=== PATIENT | female | born 1985 | race Caucasian/White ===

== ENCOUNTER 2017-06-26 18:35 | Emergency (ER) | payer MEDICAID ==
[2017-06-26] MEDS ORDERED: ONDANSETRON 4 MG/2 ML VIAL IVP ONE (18:54)
[2017-06-26] MEDS ORDERED: NS 1,000 ML IV ONE (18:54)
--- NOTE | 2017-06-26 18:58 | EDPHY ---
H & P Stated Complaint: RLQ pain - Personal History LMP (Females 10-55): 22-28 Days Ago Current Tetanus/Diphtheria Vaccine: Yes Current Tetanus Diphtheria and Acellular Pertussis (TDAP): Yes - Medical/Surgical History Hx Asthma: No Hx Chronic Respiratory Disease: No Hx Diabetes: No Hx Cardiac Disease: No Hx Renal Disease: No Hx Cirrhosis: No Hx Alcoholism: No Hx HIV/AIDS: No Hx Splenectomy or Spleen Trauma: No Other PMH: Bilateral tubal ligation - Social History Smoking Status: Never smoked Time Seen by Provider: 06/26/17 18:47 HPI/ROS: CHIEF COMPLAINT: Right lower quadrant pain HISTORY OF PRESENT ILLNESS: 32-year-old female presents with right lower quadrant pain. Sudden onset of severe right lower quadrant pain yesterday. The pain has waxed and waned since then and continues to be moderate. Associated with lack of appetite and vomiting today. No fever or chills. No prior similar symptoms. No history of ovarian cysts or kidney stones. REVIEW OF SYSTEMS: complete 10 point ROS negative except at noted in the HPI (Deysi Phan) - Physical Exam Exam: General Appearance: Alert, pleasant, appears in pain, pale Eyes: Pupils equal and round, no conjunctival injection ENT, Mouth: Mucous membranes moist Neck: Normal inspection Respiratory: Lungs are clear to auscultation Cardiovascular: Regular rate and rhythm Gastrointestinal: Abdomen is soft, right lower quadrant tenderness Neurological: A&O, nonfocal, normal gait Skin: Warm and dry Extremities: Normal inspection Psychiatric: Mood and affect normal (Deysi Phan) Constitutional: Initial Vital Signs Temperature (C) 36.8 C 06/26/17 18:39 Heart Rate 63 06/26/17 18:39 Respiratory Rate 16 06/26/17 18:39 Blood Pressure 113/70 06/26/17 18:39 O2 Sat (%) 97 06/26/17 18:39 O2 Delivery Mode Room Air Allergies/Adverse Reactions: codeine Allergy (Verified 06/26/17 18:39) Home Medications: Medication Instructions Recorded NK [No Known Home Meds] 06/26/17 Medical Decision Making - Diagnostics Imaging Results: Imaging Impressions Abdomen Ultrasound 06/26/17 18:55 Impression: Nonvisualization of the appendix with no secondary evidence of appendicitis. Findings discussed with DEYSI PHAN 06/26/2017 at 20:45. Pelvic/Renal Ultrasound 06/26/17 18:55 Impression: Mildly heterogeneous thickened endometrium, which could related to polyp, hyperplasia, or less likely malignancy. Findings discussed with DEYSI PHAN 06/26/2017 at 20:45. Abdomen/Pelvis CT 06/26/17 20:47 Impression: 1. Moderate stool in the colon. 2. Limited visualization of endometrial thickening seen better on ultrasound the same day. 3. Additional findings, as above. Findings discussed with Deysi Phan M.D., on June 26, 2017 at 2107. Attention: This CT examination is specifically designed to evaluate patients who are clinically suspected of having acute obstructive uropathy. This examination does not use radiographic contrast, and as such, provides only a limited evaluation of the abdomen, pelvis, and retroperitoneum. If there is further clinical suspicion for pathological conditions other than obstructive uropathy, a complete CT evaluation of the abdomen and pelvis utilizing intravenous and oral contrast should be considered. ED Course/Re-evaluation: This patient presents with severe right lower quadrant pain. IV normal saline 1 L and Zofran 4 mg IV given. Morphine 4mg IV given for pain control. Ultrasound of the pelvis and appendix ordered. 2049: Pelvic ultrasound is unremarkable. The appendix not visualized on ultrasound. Results discussed with the patient. She continues to have right lower quadrant pain. Labs reviewed she has leukocytosis and hematuria. Will order a noncontrast CT scan of the abdomen pelvis to evaluate for ureteral calculus and possible appendicitis. CT scan reveals a normal appendix and no evidence of ureteral calculus. Unclear etiology of pain. Results discussed with the patient. Toradol 15 mg IV given. If she feels better after IV Toradol, will plan to discharge her home. Recheck in 12-24 hours if pain persists. (Deysi Phan) Patient's pain is resolved. He feels much better. She does comfortable being discharged. Please refer to the Dr. Phan's note. (Olivia Aranda) Differential Diagnosis: Differential diagnosis includes though it is not limited to ectopic , ovarian cyst, ovarian torsion, PID, UTI, appendicitis. (Deysi Phan) - Data Points Laboratory Results: Laboratory Results 06/26/17 18:54 06/26/17 18:54 06/26/17 06/26/17 06/26/17 18:54 18:54 18:54 WBC 11.49 10^3/uL H 10^3/uL (3.80-9.50) RBC 5.25 10^6/uL 10^6/uL (4.18-5.33) Hgb 12.4 g/dL L g/dL (12.6-16.3) Hct 39.2 % % (38.0-47.0) MCV 74.7 fL L fL (81.5-99.8) MCH 23.6 pg L pg (27.9-34.1) MCHC 31.6 g/dL L g/dL (32.4-36.7) RDW 15.2 % % (11.5-15.2) Plt Count 341 10^3/uL 10^3/uL (150-400) MPV 10.5 fL fL (8.7-11.7) Neut % (Auto) 70.3 % % (39.3-74.2) Lymph % (Auto) 19.8 % % (15.0-45.0) [place] % (Auto) 7.8 % % (4.5-13.0) Eos % (Auto) 1.7 % % (0.6-7.6) Baso % (Auto) 0.2 % L % (0.3-1.7) Nucleat RBC Rel Count 0.0 % % (0.0-0.2) Absolute Neuts (auto) 8.09 10^3/uL H 10^3/uL (1.70-6.50) Absolute Lymphs (auto) 2.27 10^3/uL 10^3/uL (1.00-3.00) Absolute Monos (auto) 0.90 10^3/uL H 10^3/uL (0.30-0.80) Absolute Eos (auto) 0.19 10^3/uL 10^3/uL (0.03-0.40) Absolute Basos (auto) 0.02 10^3/uL 10^3/uL (0.02-0.10) Absolute Nucleated RBC 0.00 10^3/uL 10^3/uL (0-0.01) Immature Gran % 0.2 % % (0.0-1.1) Immature Gran # 0.02 10^3/uL 10^3/uL (0.00-0.10) Sodium 140 mEq/L mEq/L (135-145) Potassium 3.8 mEq/L mEq/L (3.5-5.2) Chloride 104 mEq/L mEq/L (97-110) Carbon Dioxide 24 mEq/l mEq/l (22-31) Anion Gap 12 mEq/L mEq/L (8-16) BUN 17 mg/dL mg/dL (7-23) Creatinine 0.8 mg/dL mg/dL (0.6-1.0) Estimated GFR > 60 Glucose 82 mg/dL mg/dL (70-100) Calcium 9.3 mg/dL mg/dL (8.5-10.4) Beta HCG, Qual NEGATIVE Urine Color Urine Appearance Urine pH Ur Specific [place] Urine Protein Urine Ketones Urine Blood Urine Nitrate Urine Bilirubin Urine Urobilinogen Ur Leukocyte Esterase Urine RBC Urine WBC Ur Epithelial Cells Urine Mucus Urine Glucose 06/26/17 18:45 WBC RBC Hgb Hct MCV MCH MCHC RDW Plt Count MPV Neut % (Auto) Lymph % (Auto) [place] % (Auto) Eos % (Auto) Baso % (Auto) Nucleat RBC Rel Count Absolute Neuts (auto) Absolute Lymphs (auto) Absolute Monos (auto) Absolute Eos (auto) Absolute Basos (auto) Absolute Nucleated RBC Immature Gran % Immature Gran # Sodium Potassium Chloride Carbon Dioxide Anion Gap BUN Creatinine Estimated GFR Glucose Calcium Beta HCG, Qual Urine Color YELLOW Urine Appearance HAZY Urine pH 6.0 (5.0-7.5) Ur Specific [place] 1.027 (1.002-1.030) Urine Protein NEGATIVE (NEGATIVE) Urine Ketones NEGATIVE (NEGATIVE) Urine Blood 1+ H (NEGATIVE) Urine Nitrate NEGATIVE (NEGATIVE) Urine Bilirubin NEGATIVE (NEGATIVE) Urine Urobilinogen NEGATIVE EU EU (0.2-1.0) Ur Leukocyte Esterase NEGATIVE (NEGATIVE) Urine RBC 3-5 /hpf H /hpf (0-3) Urine WBC 1-3 /hpf /hpf (0-3) Ur Epithelial Cells TRACE /lpf /lpf (NONE-1+) Urine Mucus 2+ /lpf H /lpf (NONE-1+) Urine Glucose NEGATIVE (NEGATIVE) Medications Given: Discontinued Medications Sodium Chloride (Ns) 1,000 mls @ 0 mls/hr IV ONCE ONE; Wide Open PRN Reason: Protocol Stop: 06/26/17 18:55 Last Admin: 06/26/17 19:05 Dose: 1,000 mls Ketorolac Tromethamine (Toradol) 15 mg IVP EDNOW ONE Stop: 06/26/17 21:13 Last Admin: 06/26/17 21:27 Dose: 15 mg Morphine Sulfate (Morphine) 4 mg IVP EDNOW ONE Stop: 06/26/17 20:46 Last Admin: 06/26/17 21:03 Dose: Not Given Morphine Sulfate (Morphine) 4 mg IVP EDNOW ONE Stop: 06/26/17 21:01 Last Admin: 06/26/17 21:02 Dose: 4 mg Ondansetron HCl (Zofran) 4 mg IVP EDNOW ONE Stop: 06/26/17 18:55 Last Admin: 06/26/17 19:05 Dose: 4 mg Ondansetron HCl (Zofran Odt 4 Mg Prepack#2) 1 btl TAKEHOME EDNOW ONE Stop: 06/26/17 21:21 Last Admin: 06/26/17 21:27 Dose: 1 btl Departure - Departure Disposition: Home, Routine, Self-Care Clinical Impression: Abdominal pain Qualifiers: Abdominal location: right lower quadrant Qualified Code(s): R10.31 - Right lower quadrant pain Condition: Good Instructions: Ondansetron (By mouth), Acute Abdominal Pain (ED) Additional Instructions: Ibuprofen 600 mg 3 times daily while the pain persists. Zofran 1 tablet under the tongue every 6 hours as needed for nausea. Clear liquids for [address] scan, your uterus appears thicker than usual. 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 Sometimes we are unable to diagnose an obvious cause of abdominal pain in the Emergency Department. Based upon our evaluation today, we see no obvious explanation for your pain. Because more serious conditions can be difficult to diagnose early in the course of their presentation, we ask that you return to the Emergency Department in 12-24 hours for a recheck if you are still having pain. This is necessary to exclude the development of a more serious condition such as appendicitis or other intra-abdominal emergency. In the event your pain markedly increases before that time or you develop intractable vomiting or fever return to the Emergency Department immediately. Referrals: Giselle Pride MD [[facility] Primary Care Provider] - 1 day, if not improved Stand Alone Forms: Work Excuse
[2017-06-26 19:06] LABS: PLATELET COUNT 341 10^3/uL (150-400)
[2017-06-26] MEDS ORDERED: KETOROLAC 15 MG/1 ML SDV IVP ONE (21:12)
[2017-06-26] MEDS ORDERED: ONDANSETRON 4MG PREPACK#2 BTL TAKEHOME ONE (21:20)
[2017-06-26 22:18] VITALS: BP 124/82
== END 2017-06-26 22:28 | disposition home or self-care (01) ==
DX: R10.31 Right lower quadrant pain (principal); E86.9 Volume depletion, unspecified; Z98.51 Tubal ligation status
CPT/HCPCS: 96374; J1885; J2270; J2405

== ENCOUNTER 2017-08-18 21:40 | Emergency (ER) | payer MEDICAID ==
--- NOTE | 2017-08-18 21:52 | CPEKG ---
Heart Rate: 68 RR Interval: 882 P-R Interval: 140 QRSD Interval: 90 QT Interval: 388 QTC Interval: 413 P [place]: 43 QRS [place]: 35 T Wave [place]: 22 EKG Severity - NORMAL ECG - EKG Impression: SINUS RHYTHM Electronically Signed By: Epi Desai 19-Aug-2017 07:05:23
--- NOTE | 2017-08-18 21:53 | EDPHY ---
H & P Stated Complaint: CP/R ARM TINGLY Time Seen by Provider: 08/18/17 22:01 HPI/ROS: HPI CHIEF COMPLAINT: Right-sided chest pain HISTORY OF PRESENT ILLNESS: 32-year-old female, she is otherwise healthy, presents to the emergency room with right-sided chest discomfort she describes as sharp stabbing. It is worse when you press on her right chest. Additionally she reports numbness and tingling right arm and right hand. Additionally reports anxiety. States she feels very anxious. This started about 2 hr ago. She is on the phone having a conversation. She denies any chest pressure or dull ache, denies left-sided chest discomfort, denies pleuritic pain. Main complaint right-sided sharp chest pain. Worse when you press on her chest. No trauma. Denies productive cough. Denies history of cardiovascular disease, denies history of DVT or PE. Past Medical History: Denies significant medical history Past Surgical History: Denies significant surgical history except for tubal ligation Social History: Denies daily use of drugs alcohol tobacco Family History: Denies cardiovascular disease in her family. ROS REVIEW OF SYSTEMS: A comprehensive 10 point review of systems is otherwise negative aside from elements mentioned in the history of present illness. Exam Constitutional appears anxious otherwise nontoxic, triage nursing summary reviewed, vital signs reviewed, awake/alert. Eyes normal conjunctivae and sclera, EOMI, PERRLA. HENT normal inspection, atraumatic, moist mucus membranes, no epistaxis, neck supple/ no meningismus, no raccoon eyes. Respiratory clear to auscultation bilaterally, normal breath sounds, no respiratory distress, no wheezing. Cardiovascular chest wall: Mild tender palpation right chest wall reproducible on exam, rate normal, regular rhythm, no murmur, no edema, distal pulses normal. Gastrointestinal soft, non-tender, no rebound, no guarding, normal bowel sounds, no distension, no pulsatile mass. Genitourinary no CVA tenderness. Musculoskeletal no midline vertebral tenderness, full range of motion, no calf swelling, no tenderness of extremities, no meningismus, good pulses, neurovascularly intact. Skin pink, warm, & dry, no rash, skin atraumatic. Neurologic awake, alert and oriented x 3, AAOx3, moves all 4 extremities equally, motor intact, sensory intact, CN II-XII intact, normal cerebellar, normal vision, normal speech. Psychiatric normal mood/affect. Heme/Lymph/Immune no lymphadenopathy. 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 Re-evaluation: EKG interpretation by me on record in [employer] system. Impression time of EKG 2150, sinus rhythm rate of [address] elevation there is no ST depression no significant T-wave abnormalities no signs of cardiac arrhythmia. Unremarkable nonischemic EKG. EKG was performed due to right-sided chest discomfort. Given this patient's positive D-dimer in the setting of right-sided pleuritic pain or sharp stabbing pain, will proceed with CT angiogram chest to make sure there is no pulmonary embolism. CT angiogram of the chest for PE shows no evidence of pulmonary embolism. Called to me by Dr. Delgado 1230: Patient re-evaluated this time she is resting comfortably no acute distress. Her EKG is nonischemic. Additionally troponin negative. D-dimer is positive but has a negative CT angiogram. Patient resting comfortably after Toradol and Ativan. She does have reproducible right-sided musculoskeletal chest wall pain. EKG interpretation by me on record in [employer] system. Impression this is a repeat EKG time 1:07 a.m., sinus rhythm rate of 66 no significant signs of acute ischemia on the EKG. Unremarkable EKG and unchanged from previous EKG. 0210: Re-evaluation time resting comfortably no acute distress denies chest pain. Patient repeat troponin repeat EKG unremarkable. CT angiogram of the chest shows no evidence of PE. Plan for patient discharge home. Understands return emergency room she develops any worsening chest pain shortness of breath fever vomiting questions or concerns. Source: Patient - Personal History LMP (Females 10-55): 8-14 Days Ago Current Tetanus Diphtheria and Acellular Pertussis (TDAP): Yes - Medical/Surgical History Hx Asthma: No Hx Chronic Respiratory Disease: No Hx Diabetes: No Hx Cardiac Disease: No Hx Renal Disease: No Hx Cirrhosis: No Hx Alcoholism: No Hx HIV/AIDS: No Hx Splenectomy or Spleen Trauma: No Other PMH: Bilateral tubal ligation, HTN - Social History Smoking Status: Never smoked Constitutional: Initial Vital Signs Temperature (C) 36.8 C 08/18/17 21:42 Heart Rate 73 08/18/17 21:42 Respiratory Rate 16 08/18/17 21:42 Blood Pressure 124/94 H 08/18/17 21:42 O2 Sat (%) 96 08/18/17 21:42 O2 Delivery Mode Room Air Allergies/Adverse Reactions: codeine Allergy (Verified 06/26/17 18:39) Home Medications: Medication Instructions Recorded Ibuprofen [Motrin (*)] 800 mg PO Q6-8PRN #30 tab 08/19/17 Medical Decision Making - Diagnostics Imaging Results: Imaging Impressions Chest X-Ray 08/18/17 22:00 Impression: No significant radiographic abnormality. Specifically, a source for chest pain is not identified. Chest/Thorax CTA 08/18/17 22:38 Impression: 1. No evidence of pulmonary embolic disease. 2 see above report for additional findings. Results called and discussed with Epi Desai MD on 08/18/2017 at 23:25. - Data Points Laboratory Results: Laboratory Results 08/18/17 21:55 08/18/17 21:55 08/19/17 08/18/17 08/18/17 01:07 22:17 21:55 WBC RBC Hgb Hct MCV MCH MCHC RDW Plt Count MPV Neut % (Auto) Lymph % (Auto) [place] % (Auto) Eos % (Auto) Baso % (Auto) Nucleat RBC Rel Count Absolute Neuts (auto) Absolute Lymphs (auto) Absolute Monos (auto) Absolute Eos (auto) Absolute Basos (auto) Absolute Nucleated RBC Immature Gran % Immature Gran # PT INR APTT D-Dimer Sodium Potassium Chloride Carbon Dioxide Anion Gap BUN Creatinine Estimated GFR Glucose Calcium Magnesium Total Bilirubin Conjugated Bilirubin Unconjugated Bilirubin AST ALT Alkaline Phosphatase POC Troponin I 0.00 ng/mL ng/mL 0.00 ng/mL ng/mL (0.00-0.08) (0.00-0.08) NT-Pro-B Natriuret Pep Total Protein Albumin Lipase Beta HCG, Qual NEGATIVE 07/02/18 07/02/18 07/02/18 21:55 21:55 21:55 WBC 10.07 10^3/uL H 10^3/uL (3.80-9.50) RBC 5.35 10^6/uL H 10^6/uL (4.18-5.33) Hgb 12.6 g/dL g/dL (12.6-16.3) Hct 39.8 % % (38.0-47.0) MCV 74.4 fL L fL (81.5-99.8) MCH 23.6 pg L pg (27.9-34.1) MCHC 31.7 g/dL L g/dL (32.4-36.7) RDW 15.9 % H % (11.5-15.2) Plt Count 337 10^3/uL 10^3/uL (150-400) MPV 10.4 fL fL (8.7-11.7) Neut % (Auto) 70.7 % % (39.3-74.2) Lymph % (Auto) 18.7 % % (15.0-45.0) [place] % (Auto) 8.3 % % (4.5-13.0) Eos % (Auto) 1.7 % % (0.6-7.6) Baso % (Auto) 0.3 % % (0.3-1.7) Nucleat RBC Rel Count 0.0 % % (0.0-0.2) Absolute Neuts (auto) 7.12 10^3/uL H 10^3/uL (1.70-6.50) Absolute Lymphs (auto) 1.88 10^3/uL 10^3/uL (1.00-3.00) Absolute Monos (auto) 0.84 10^3/uL H 10^3/uL (0.30-0.80) Absolute Eos (auto) 0.17 10^3/uL 10^3/uL (0.03-0.40) Absolute Basos (auto) 0.03 10^3/uL 10^3/uL (0.02-0.10) Absolute Nucleated RBC 0.00 10^3/uL 10^3/uL (0-0.01) Immature Gran % 0.3 % % (0.0-1.1) Immature Gran # 0.03 10^3/uL 10^3/uL (0.00-0.10) PT 14.3 SEC SEC (12.0-15.0) INR 1.09 (0.83-1.16) APTT 29.1 SEC SEC (23.0-38.0) D-Dimer 0.89 ug/mLFEU H ug/mLFEU (0.00-0.50) Sodium 138 mEq/L mEq/L (135-145) Potassium 3.5 mEq/L mEq/L (3.3-5.0) Chloride 106 mEq/L mEq/L (97-110) Carbon Dioxide 24 mEq/l mEq/l (22-31) Anion Gap 8 mEq/L mEq/L (8-16) BUN 11 mg/dL mg/dL (7-23) Creatinine 0.7 mg/dL mg/dL (0.6-1.0) Estimated GFR > 60 Glucose 93 mg/dL mg/dL (70-100) Calcium 9.7 mg/dL mg/dL (8.5-10.4) Magnesium 1.7 mg/dL mg/dL (1.6-2.3) Total Bilirubin 1.3 mg/dL mg/dL (0.1-1.4) Conjugated Bilirubin 0.4 mg/dL mg/dL (0.0-0.5) Unconjugated Bilirubin 0.9 mg/dL mg/dL (0.0-1.1) AST 22 IU/L IU/L (14-46) ALT 30 IU/L IU/L (9-52) Alkaline Phosphatase 117 IU/L IU/L (38-126) POC Troponin I NT-Pro-B Natriuret Pep 22 pg/mL pg/mL (0-125) Total Protein 8.6 g/dL H g/dL (6.3-8.2) Albumin 4.6 g/dL g/dL (3.5-5.0) Lipase 55 IU/L IU/L (23-300) Beta HCG, Qual Medications Given: Discontinued Medications Sodium Chloride (Ns) 1,000 mls @ 0 mls/hr IV EDNOW ONE; Wide Open PRN Reason: Protocol Stop: 08/18/17 22:01 Last Admin: 08/18/17 22:10 Dose: 1,000 mls Ketorolac Tromethamine (Toradol) 15 mg IVP EDNOW ONE Stop: 08/18/17 22:01 Last Admin: 08/18/17 22:11 Dose: 15 mg Lorazepam (Ativan Injection) 0.5 mg IVP EDNOW ONE Stop: 08/18/17 22:01 Last Admin: 08/18/17 22:11 Dose: 0.5 mg Point of Care Test Results: Chemistry 08/19/17 08/18/17 01:07 22:17 POC Troponin I 0.00 ng/mL ng/mL 0.00 ng/mL ng/mL (0.00-0.08) (0.00-0.08) Departure - Departure Disposition: Home, Routine, Self-Care Clinical Impression: Chest wall pain Condition: Good Instructions: Chest Wall Pain (ED) Additional Instructions: 1. Return emergency room if you have worsening pain questions or concerns. 2. Anti-inflammatory pain medicine as prescribed 3. Follow up with your primary care doctor. Referrals: NONE *PRIMARY CARE P,. [Primary Care Provider] - As per Instructions [facility],. [Clinic] - As per Instructions Prescriptions: Ibuprofen [Motrin (*)] 800 mg PO Q6-8PRN #30 tab
[2017-08-18] MEDS ORDERED: NS 1,000 ML IV ONE (22:00)
[2017-08-18] MEDS ORDERED: KETOROLAC 15 MG/1 ML SDV IVP ONE (22:00)
[2017-08-18] MEDS ORDERED: LORazepam 2 MG/ML INJ IVP ONE (22:00)
[2017-08-18 22:23] LABS: PLATELET COUNT 337 10^3/uL (150-400)
[2017-08-18 22:28] LABS: INR 1.09 (0.83-1.16); PROTIME(PATIENT) 14.3 SEC (12.0-15.0)
[2017-08-18] MEDS ORDERED: IOPAMIDOL (ISOVUE 370) 100 ML BTL IV ONE (22:41)
--- NOTE | 2017-08-19 01:12 | CPEKG ---
Heart Rate: 66 RR Interval: 909 P-R Interval: 148 QRSD Interval: 88 QT Interval: 392 QTC Interval: 411 P [place]: 50 QRS [place]: 25 T Wave [place]: 16 EKG Severity - NORMAL ECG - EKG Impression: SINUS RHYTHM Electronically Signed By: Epi Desai 19-Aug-2017 07:05:23
[2017-08-19 02:20] VITALS: BP 119/77
== END 2017-08-19 02:20 | disposition home or self-care (01) ==
DX: R07.89 Other chest pain (principal); I10 Essential (primary) hypertension; E86.9 Volume depletion, unspecified
CPT/HCPCS: 84484-PO; 96374; J1885; J2060; Q9967

== ENCOUNTER 2017-08-19 12:47 | Emergency (ER) | payer MEDICAID ==
[2017-08-19 12:57] VITALS: BP 122/72
--- NOTE | 2017-08-19 13:01 | EDPHY ---
H & P Stated Complaint: pt seen last night d/c @0220- panic attack, c/o diziness/ hand cramps Time Seen by Provider: 08/19/17 12:58 - Personal History Current Tetanus Diphtheria and Acellular Pertussis (TDAP): Unsure - Medical/Surgical History Hx Asthma: No Hx Chronic Respiratory Disease: No Hx Diabetes: No Hx Cardiac Disease: No Hx Renal Disease: No Hx Cirrhosis: No Hx Alcoholism: No Hx HIV/AIDS: No Hx Splenectomy or Spleen Trauma: No Other PMH: Bilateral tubal ligation, HTN - Social History Smoking Status: Never smoked Constitutional: Initial Vital Signs Temperature (C) 36.4 C 08/19/17 12:52 Heart Rate 72 08/19/17 12:52 Respiratory Rate 16 08/19/17 12:52 Blood Pressure 122/72 H 08/19/17 12:52 O2 Sat (%) 96 08/19/17 12:52 O2 Delivery Mode Room Air Allergies/Adverse Reactions: codeine Allergy (Verified 06/26/17 18:39) Home Medications: Medication Instructions Recorded Ibuprofen [Motrin (*)] 800 mg PO Q6-8PRN #30 tab 08/19/17 Medical Decision Making ED Course/Re-evaluation: CHIEF COMPLAINT: Carpopedal spasms, dizzy HISTORY OF PRESENT ILLNESS: The patient is a 32 y/o female arriving via EMS complaining of carpopedal spasms and dizziness. She was discharged from this emergency department at 02:20 , 11 hours ago, for similar symptoms. During this visit she had a normal workup and was prescribed Ativan. She did not fill this prescription yet. Today she was at her daughter's school and developed the symptoms again. Denies eating or sleeping much. Denies chest pain, shortness of breath, abdominal pain, urinary or bowel complaints, fever. REVIEW OF SYSTEMS: A 10 point review of systems was performed and is negative with the exception of the elements mentioned in the history of present illness. PHYSICAL EXAM: HR, BP, O2 Sat, RR. Temp noted General Appearance: Alert, well hydrated, appropriate, and non-toxic appearing. Head: Atraumatic without scalp tenderness or obvious injury Eyes: Pupils equal, round, reactive to light and accommodation, EOMI, no trauma , no injection. Ears: Clear bilaterally, no perforation, normal landmarks Nose: Atraumatic, no rhinorrhea, clear. Throat: There is no erythema or exudates, no lesions, normal tonsils, mucus membranes moist. Neck: Supple, 2+ carotid upstroke, nontender, no lymphadenopathy. Respiratory: No retractions, no distress, no wheezes, and no accessory muscle use. Lungs are clear to auscultation bilaterally. Cardiovascular: Regular rate and rhythm, no murmurs, rubs, or gallops. Bilateral carotid, radial, dorsalis pedis, and posterior tibial pulses intact. Good capillary refill all extremities. Gastrointestinal: Abdomen is soft, nontender, non-distended, no masses, no rebound, no guarding, no peritoneal signs. Musculoskeletal: Normal active ROM of all extremities, atraumatic. Neurological: Alert, appropriate, and interactive. The patient has normal DTRs and non-focal cranial nerves, motor, sensory, and cerebellar exam. Skin: No rashes, good turgor, no nodules on palpation. Past medical history: Anxiety Past surgical history: Denies Family history: Denies Social history: Lives in [place], single, not employed DIFFERENTIAL DIAGNOSIS: The differential diagnosis for the patient's dizziness included but was not limited to anxiety, peripheral and central causes of vertigo, orthostatic causes including dehydration, cardiogenic and neurogenic causes, and blood loss. MEDICAL DECISION MAKING: The patient is a 32 y/o female arriving via EMS presenting with carpopedal spasms and dizziness after being seen in this emergency department last night for anxiety. Her physical exam is normal. She has not filled the prescription for Ativan yet. Imaging and laboratory studies are not indicated at this time. 1300: Reassessed patient and discussed filling her Ativan prescription. She is not symptomatic and safe to return home. Return precautions provided; patient is comfortable with this plan. Departure - Departure Disposition: Home, Routine, Self-Care Clinical Impression: Panic attack, Numbness, Anxiety Condition: Good Instructions: Paresthesia (ED), Anxiety (ED), Panic Attack (ED) Additional Instructions: 1. Fill the prescriptions that you were prescribed last night. 2. Follow-up with your primary doctor within 72 hours. 3. Return to the Emergency Department for fever, chest pain, shortness of breath , increasing pain or other worsening of condition. Referrals: [facility],. [Clinic] - As per Instructions Report Scribed for: Jose Angel Quinteros Report Scribed by: Lia Nix Date of Report: 08/19/17 Time of Report: 13:03
== END 2017-08-19 13:17 | disposition home or self-care (01) ==
LOC: EDUNIT#
DX: F41.0 Panic disorder [episodic paroxysmal anxiety] (principal); R20.0 Anesthesia of skin; I10 Essential (primary) hypertension

== ENCOUNTER 2018-01-03 19:32 | Emergency (ER) | payer MEDICAID ==
[2018-01-03] MEDS ORDERED: fentaNYL 100 MCG/2 ML INJ IVP ONE (19:52)
[2018-01-03 20:00] LABS: PLATELET COUNT 354 10^3/uL (150-400)
[2018-01-03] MEDS ORDERED: IOPAMIDOL (ISOVUE 370) 100 ML BTL IV ONE ×2 (20:28→20:42)
[2018-01-03] MEDS ORDERED: LORazepam 2 MG/ML INJ IVP ONE (21:03)
[2018-01-03] MEDS ORDERED: LORazepam 2 MG/ML INJ ONE (21:03)
[2018-01-03] MEDS ORDERED: OXYCODONE/APAP 5/325MG PREPACK#4 BTL TAKEHOME ONE (22:10)
--- NOTE | 2018-01-03 22:10 | EDPHY ---
H & P Stated Complaint: chest pain - Personal History LMP (Females 10-55): Now Current Tetanus Diphtheria and Acellular Pertussis (TDAP): Unsure - Medical/Surgical History Hx Asthma: No Hx Chronic Respiratory Disease: No Hx Diabetes: No Hx Cardiac Disease: No Hx Renal Disease: No Hx Cirrhosis: No Hx Alcoholism: No Hx HIV/AIDS: No Hx Splenectomy or Spleen Trauma: No Other PMH: Bilateral tubal ligation, HTN - Social History Smoking Status: Never smoked Time Seen by Provider: 01/03/18 19:42 HPI/ROS: Chief complaint: Chest pain History of present illness: This is a 32-year-old female who presents to the emergency department for evaluation of chest pain. She reports the onset of symptoms over the last few days. She describes a sharp pain in the left upper aspect of chest. She does have associated shortness breath. Stress reports she has noticed a lump in her left breast. She has a mammogram scheduled for next week to evaluate this. She denies specific precipitating factors. She denies alleviating factors. She denies other associated signs or symptoms including no fevers or cold symptoms, no trauma. Review of systems: A 10 point review of systems was obtained and other than described above was negative (Ricardo Li) - Physical Exam Exam: General Appearance: Alert, appears uncomfortable. Eyes: Pupils equal and round no pallor or injection. ENT, Mouth: Mucous membranes moist. Respiratory: There are no retractions, lungs are clear to auscultation. Cardiovascular: Regular rate and rhythm. Gastrointestinal: Abdomen is soft and non tender, no masses, bowel sounds normal. Neurological: Alert and oriented x4. Strength and sensation intact and symmetrical. Skin: Warm and dry, no rashes. Musculoskeletal: Neck is supple non tender. Anterior chest wall is tender to palpation without crepitus or subcutaneous air. Extremities are symmetrical, full range of motion. Psychiatric: Patient is oriented X 3, there is no agitation. (Ricardo Li) Constitutional: Initial Vital Signs Temperature (C) 36.6 C 01/03/18 19:35 Heart Rate 75 01/03/18 19:35 Respiratory Rate 20 01/03/18 19:35 Blood Pressure 138/88 H 01/03/18 19:35 O2 Sat (%) 99 01/03/18 19:35 O2 Delivery Mode Room Air Allergies/Adverse Reactions: codeine Allergy (Verified 01/03/18 19:35) Home Medications: Medication Instructions Recorded Ibuprofen [Motrin (*)] 800 mg PO Q6-8PRN #30 tab 08/19/17 oxyCODONE/APAP 5/325 [Percocet 1 tab PO Q6 #6 tab 01/03/18 5/325] Medical Decision Making - Diagnostics Imaging: Discussed imaging studies w/ pressure sealer and tester Radiologist ED Course/Re-evaluation: Patient is discussed with my secondary supervising physician Dr. Ricih Saleh. Patient presents to the emergency department reporting she has had chest pain for the last few days. She is afebrile. Vital signs are stable. Physical exam does reveal chest wall tenderness. Evaluation reveals a positive D-dimer, CTA is pursued and negative. Troponin is negative. EKG is reviewed by Dr. Saleh and appears within normal limits. Patient is symptomatically treated with improvement in symptoms. I have discussed with the patient it is not clear as to the exact cause of her symptoms. I have discussed home management using pain medications. She is asked to follow up with her primary care doctor at [facility] for continued evaluation and care. Strict return precautions are given. The patient voiced understanding and agreement with plan. She is discharged with family. (Ricardo Li) Differential Diagnosis: Included but not limited to musculoskeletal pain, reflux, gastritis, pulmonary embolism, pneumothorax, pulmonary infections, ACS, cardiac dysrhythmia (Ricardo Li) - Data Points Laboratory Results: Laboratory Results 01/03/18 19:47 01/03/18 19:47 Medications Given: Discontinued Medications Fentanyl (Sublimaze) 100 mcg IVP EDNOW ONE Stop: 01/03/18 19:53 Last Admin: 01/03/18 20:14 Dose: 100 mcg Lorazepam (Ativan Injection) 1 mg IVP EDNOW ONE Stop: 01/03/18 21:04 Last Admin: 01/03/18 21:06 Dose: 1 mg Oxycodone/Acetaminophen (Percocet 5/325mg Prepack#4) 1 btl TAKEHOME EDNOW ONE Stop: 01/03/18 22:11 Last Admin: 01/03/18 22:16 Dose: 1 btl Point of Care Test Results: Chemistry 01/03/18 20:36 POC Troponin I 0.00 ng/mL ng/mL (0.00-0.08) Departure - Departure Disposition: Home, Routine, Self-Care Clinical Impression: Chest pain Qualifiers: Chest pain type: unspecified Qualified Code(s): R07.9 - Chest pain, unspecified Condition: Good Instructions: Oxycodone/Acetaminophen (By mouth), Chest Pain (ED) Additional Instructions: Follow-up with your primary care doctor next week for recheck You have been prescribed Percocet for pain. Percocet contains Tylenol, do not take extra Tylenol/acetaminophen/APAP with it. Use [id number] Zantac as directed on label for the next 2 weeks If symptoms worsen or new symptoms develop return to the emergency department immediately for recheck Referrals: NONE *PRIMARY CARE P,. [Primary Care Provider] - As per Instructions [facility],. [Clinic] - As per Instructions Prescriptions: oxyCODONE/APAP 5/325 [Percocet 5/325] 1 tab PO Q6 #6 tab
[2018-01-03 22:21] VITALS: BP 128/91
--- NOTE | 2018-01-05 08:28 | CPEKG ---
Test Reason : OPEN Blood Pressure : / mmHG Vent. Rate : 077 BPM Atrial Rate : 074 BPM P-R Int : 144 ms QRS Dur : 092 ms QT Int : 386 ms P-R-T Axes : 046 028 023 degrees QTc Int : 437 ms Accelerated junctional rhythm ST elev, probable normal early repol pattern Confirmed by Richi Saleh ([id number]) on 01/05/2018 8:28:07 AM Referred By: Confirmed By:Richi Saleh
== END 2018-01-03 22:20 | disposition home or self-care (01) ==
DX: R07.9 Chest pain, unspecified (principal); I10 Essential (primary) hypertension
CPT/HCPCS: 84484-PO; 96374; J2060; J3010; Q9967

== ENCOUNTER → 2018-01-30 | Outpatient (CLI) | payer MEDICAID | LOC: FIMAGING 10:20 | PROVIDERS: ATTEND Physician Assistant | DX: N64.4 Mastodynia (principal) ==

== ENCOUNTER 2018-03-07 10:34 | Emergency (ER) | payer MEDICAID ==
[2018-03-07] MEDS ORDERED: HYDROmorphONE/DILAUDID 2 MG/ML INJ IVP ONE (11:06)
--- NOTE | 2018-03-07 11:44 | EDPHY ---
General Time Seen by Provider: 03/07/18 11:00 Narrative: CLINICAL IMPRESSION: Left knee injury ASSESSMENT/PLAN: 32-year-old female presents to the emergency department by EMS after ground level fall from slipping on the ice. Patient is complaining of left lateral knee pain. Exam is limited by patient's intolerance of movement of the knee. She has a large contusion to the left lateral knee but no open wound or obvious deformity. No reproducible pain to proximal or distal joints. Distal neurovascular exam is intact. No radiologic evidence of acute fracture, dislocation. Pain improved with IV analgesics. Patient was placed in a straight leg knee brace, rice treatment discussed, orthopedic referral given, prescription analgesics provided, warning signs return to ED sooner alignment discharge DIFFERENTIAL DX: Differential includes but not limited to acute fracture, strain/sprain, joint dislocation, soft tissue contusion ED PROCEDURES: Procedure: Splint placement. A straight leg knee splint was applied to left leg by golf technician, supervised by myself. After application of the splint I returned and re-examined the patient. The splint was adequately immobilizing the joint and distal to the splint the patient's circulation and sensation was intact. ED COURSE: CHIEF COMPLAINT: Left knee pain HPI: 32-year-old female presents to the emergency department by EMS after she slipped on the ice and fell onto the lateral aspect of left knee. Patient reports he is unable to ambulate. She reports no prior knee injury or surgery. No hip or ankle pain. No foot pain. No reported numbness or loss of sensation to the leg. Her reports hearing a"snap". She has obvious bruising to the leg but no open wounds. PAST MEDICAL HISTORY: None reported Pertinent Past Surgical History: No prior Ortho surgery Social History: , here with her REVIEW OF SYSTEMS: All other systems negative Constitutional: No fever, no chills Musculoskeletal: No deformity, + joint pain Skin: No rashes, color change or open wounds. Neurological: No sensory loss or weakness. PHYSICAL EXAM: General Appearance: Alert, oriented, appropriate for age, cooperative, NAD, well hydrated, appears uncomfortable overweight, VSS, no hypoxia. Neurological: Alert and oriented x 3, normal sensation and strength of extremities Skin: Warm, dry, no rashes, no nodules on palpation. Musculoskeletal: Reproducible pain to light palpation of the left lateral knee. Contusion present. No open wound. No obvious deformity or evidence of dislocation. No hip or ankle pain. Distal neurovascular exam intact. MEDICAL DECISION MAKING: Patient was seen independently. Secondary supervising physician at time of evaluation was Dr. Saleh. Diagnosis: Left knee strain. New, requires workup Summary: See assessment and plan for summary of ED visit Independent visualization of images, tracing, or specimens yes. Decision to obtain medical records or history from someone other than the patient: Patient's Patient Progress: Stable. - Diagnostics Imaging Results: Imaging Impressions Knee X-Ray 03/07/18 11:06 Impression: Negative. - History Smoking Status: Never smoked - Objective Vital Signs: Initial Vital Signs Temperature (C) 36.8 C 03/07/18 10:34 Heart Rate 79 03/07/18 10:34 Respiratory Rate 18 03/07/18 10:34 Blood Pressure 128/91 H 03/07/18 10:34 O2 Sat (%) 95 03/07/18 10:34 O2 Delivery Mode Room Air Allergies/Adverse Reactions: codeine Allergy (Verified 03/07/18 10:41) Home Medications: Medication Instructions Recorded Hydrocodone/APAP 5/325 [Endeavor 1 - 2 tab PO Q4H PRN #10 tab 03/07/18 5/325 (*)] Medications Given: Discontinued Medications Hydromorphone HCl (Dilaudid) 0.5 mg IVP EDNOW ONE Stop: 03/07/18 11:07 Last Admin: 03/07/18 11:24 Dose: 0.5 mg Departure - Departure Disposition: Home, Routine, Self-Care Clinical Impression: Knee injury Qualifiers: Encounter type: initial encounter Laterality: left Qualified Code(s): S89.92XA - Unspecified injury of left lower leg, initial encounter Condition: Good Instructions: Knee Sprain (ED) Additional Instructions: DISCHARGE INSTRUCTIONS FROM YOUR DOCTOR Thank you for visiting our emergency department today. Please keep in mind that discharge from the emergency department does not mean that there is nothing wrong - it simply means that we have not identified an emergency condition that requires further evaluation or treatment in the hospital. You should always plan to follow up with primary care for re-evaluation of your condition in the next 2-3 days. If you have been referred to a specialist, please call as soon as possible (today or tomorrow) to schedule your follow up appointment at the appropriate time. THE X-RAYS OF HER KNEE WERE READ BY THE RADIOLOGIST SHOWING NO EVIDENCE OF FRACTURE OR BONY ABNORMALITY. YOU MAY HAVE SUFFERED A LIGAMENTOUS INJURY. YOU NEED TO FOLLOW-UP WITH ORTHOPEDICS. THEY MAY RECOMMEND AN MRI. REST AND ELEVATE THE AFFECTED EXTREMITY MUCH POSSIBLE. ICE THE AFFECTED AREAS 20 MIN ON, 20 MIN OFF FOR THE NEXT SEVERAL DAYS. PLEASE USE TYLENOL OR IBUPROFEN OVER THE COUNTER IN APPROPRIATE DOSES OUTLINED ON YOUR DISCHARGE PAPERS. TAKE IBUPROFEN WITH FOOD AND A LARGE GLASS OF WATER.DO NOT DRIVE OR DRINK ALCOHOL WHILE TAKING NARCOTIC PAIN MEDICATION. PLEASE BE AWARE, NARCOTICS CAN CAUSE CONSTIPATION, LETHARGY, AND INCREASE YOUR RISK OF FALLING. DO NOT TAKE TYLENOL AT THE SAME TIME VICODIN OR PERCOCET. CALL ORTHOPEDICS FOR AN APPOINTMENT ON FRIDAY. RETURN TO THE EMERGENCY DEPARTMENT FOR SEVERE PAIN, LOSS OF SENSATION TO THE LOWER LEG, FOOT OR TOES, FEVERS, SKIN COLORATION CHANGES OR ANY OTHER CONCERNS. People present with illnesses and injuries in different ways, and it is always possible that we have missed something. You may always return for re-evaluation if symptoms worsen or if they are not improving or if you develop new/different symptoms. Again, thank you for choosing our emergency department. We hope that you feel better. Referrals: NONE *PRIMARY CARE P,. [Primary Care Provider] - As per Instructions Earl Madison MD [Medical Doctor] - 2-3 days without fail Prescriptions: Hydrocodone/APAP 5/325 [Endeavor 5/325 (*)] 1 - 2 tab PO Q4H PRN #10 tab PRN Reason: Pain, Moderate
[2018-03-07 12:31] VITALS: BP 126/84
== END 2018-03-07 12:30 | disposition home or self-care (01) ==
LOC: EDUNIT#
DX: S80.02XA Contusion of left knee, initial encounter (principal); W00.0XXA Fall on same level due to ice and snow, initial encounter; Y92.9 Unspecified place or not applicable; Y99.9 Unspecified external cause status; Y93.9 Activity, unspecified
CPT/HCPCS: 96374; J1170; L1830

== ENCOUNTER 2018-03-19 17:49 | Emergency (ER) | payer MEDICAID ==
--- NOTE | 2018-03-19 18:40 | EDPHY ---
H & P Stated Complaint: Fall yest Time Seen by Provider: 03/19/18 18:29 HPI/ROS: CHIEF COMPLAINT: Left hip and knee pain HISTORY OF PRESENT ILLNESS: The patient is a 33-year-old female who states that she slipped while walking down the stairs yesterday evening. She landed on her buttocks and slid down the stairs. When she hit the bottom she hurt her knee. She states that it is the same knee that she hurt when she fell 2 weeks ago. She was seen here and had normal x-rays. She was told that she had a soft tissue injury. It had been feeling better until her fall last night. She has been able to ambulate today but has had significant pain. She has also some slight bruising to her right forearm but states this does not hurt. She did not hit her head. She has no neck pain. She told triage that she was also slightly nauseous earlier today but she and her think that this is from bed cheese that the whole family 8 yesterday. states the whole family was nauseous this morning but has since resolved. The they do not think that it is related to the trauma. Severity: Moderate Modifying factors: Not improved with ibuprofen REVIEW OF SYSTEMS: Constitutional: denies: chills, fever, recent illness, recent injury EENTM: denies: blurred vision, double vision, nose congestion Respiratory: denies: cough, shortness of breath Cardiac: denies: chest pain, irregular heart rate, lightheadedness, palpitations Gastrointestinal/Abdominal: denies: abdominal pain, diarrhea, nausea, vomiting, blood streaked stools Genitourinary: denies: dysuria, frequency, hematuria, pain Musculoskeletal: See HPI Skin: denies: lesions, rash, jaundice, bruising Neurological: denies: headache, numbness, paresthesia, tingling, dizziness, weakness Hematologic/Lymphatic: denies: blood clots, easy bleeding, easy bruising Immunologic/allergic: denies: HIV/AIDS, transplant 10 systems reviewed and negative except as noted EXAM: GENERAL: Well-appearing, well-nourished and in no acute distress. HEAD: Atraumatic, normocephalic. EYES: Pupils equal round and reactive to light, extraocular movements intact, sclera anicteric, conjunctiva are normal. ENT: TMs normal, nares patent, oropharynx clear without exudates. Moist mucous membranes. NECK: Normal range of motion, supple without lymphadenopathy or JVD. LUNGS: Breath sounds clear to auscultation bilaterally and equal. No wheezes rales or rhonchi. HEART: Regular rate and rhythm without murmurs, rubs or gallops. ABDOMEN: Soft, nontender, normoactive bowel sounds. No guarding, no rebound. No masses appreciated. BACK: No CVA tenderness, no spinal tenderness, step-offs or deformities EXTREMITIES: Left knee and hip pain, no obvious swelling or deformity. No focal tenderness. Normal range of motion but with pain. no pitting or edema. No clubbing or cyanosis. NEUROLOGICAL: Cranial nerves II through XII grossly intact. Normal speech, normal gait. 5/5 strength, normal movement in all extremities, normal sensation , normal reflexes PSYCH: Normal mood, normal affect. SKIN: Warm, dry, normal turgor, no visible rashes or lesions. Source: Patient Exam Limitations: No limitations - Personal History LMP (Females 10-55): Now Current Tetanus/Diphtheria Vaccine: Yes Tetanus Vaccine Date: < 10 years - Medical/Surgical History Hx Asthma: No Hx Chronic Respiratory Disease: No Hx Diabetes: No Hx Cardiac Disease: No Hx Renal Disease: No Hx Cirrhosis: No Hx Alcoholism: No Hx HIV/AIDS: No Hx Splenectomy or Spleen Trauma: No Other PMH: Bilateral tubal ligation, HTN - Family History Significant Family History: No pertinent family hx - Social History Smoking Status: Never smoked Alcohol Use: Sober Constitutional: Initial Vital Signs Temperature (C) 37.4 C 03/19/18 18:02 Heart Rate 97 03/19/18 18:02 Respiratory Rate 18 03/19/18 18:02 Blood Pressure 115/70 03/19/18 18:02 O2 Sat (%) 96 03/19/18 18:02 O2 Delivery Mode Room Air Allergies/Adverse Reactions: codeine Allergy (Verified 03/07/18 10:41) Home Medications: Medication Instructions Recorded Hydrocodone/APAP 5/325 [Cushing 1 - 2 tab PO Q4H PRN #10 tab 03/07/18 5/325 (*)] oxyCODONE/APAP 5/325 [Percocet 1 - 2 tab PO Q4H PRN #7 tab 03/19/18 5/325 (*)] Medical Decision Making - Diagnostics Imaging Results: Imaging Impressions Hip X-Ray 03/19/18 18:35 Impression: Nothing acute identified. 2. Left Knee, 5 views including a sunrise view History: Pain post fall Findings: No fracture or dislocation is identified. There is no knee joint effusion. The patella sits slightly eccentric lesion in the lateral distal femoral groove and there may be some soft tissue swelling in the region of the medial patellar retinaculum. Impression: No fracture. Knee X-Ray 03/19/18 18:35 Impression: Nothing acute identified. 2. Left Knee, 5 views including a sunrise view History: Pain post fall Findings: No fracture or dislocation is identified. There is no knee joint effusion. The patella sits slightly eccentric lesion in the lateral distal femoral groove and there may be some soft tissue swelling in the region of the medial patellar retinaculum. Impression: No fracture. ED Course/Re-evaluation: 7:20 a.m. the patient is able to ambulate. We discussed the x-ray results which are reassuring. She states that she had significant injury to her pubic bone 14 years ago during childbirth and took a long time to heal. This is likely the abnormality receiving on x-ray. She does not currently have any suprapubic or groin pain. Differential Diagnosis: Partial list of the Differential diagnosis considered include but were not limited to; contusion, sprain and although unlikely based on the history and physical exam, I also considered fracture, dislocation, infection. I discussed these differential diagnoses and the plan with the patient as well as the usual and expected course. The patient understands that the diagnosis is provisional and that in medicine we are not always correct and that further workup is often warranted. Usual and customary warnings were given. All of the patient's questions were answered. The patient was instructed to return to the emergency department should the symptoms at all worsen or return, otherwise to followup with the physician as we discussed. - Data Points Medications Given: Discontinued Medications Morphine Sulfate (Morphine) 10 mg IM EDNOW ONE Stop: 03/19/18 18:36 Last Admin: 03/19/18 19:08 Dose: 10 mg Oxycodone/Acetaminophen (Percocet 5/325mg Prepack#4) 1 btl TAKEHOME EDNOW ONE Stop: 03/19/18 19:23 Last Admin: 03/19/18 19:27 Dose: 1 btl Departure - Departure Disposition: Home, Routine, Self-Care Clinical Impression: Contusion Fall Qualifiers: Encounter type: initial encounter Qualified Code(s): W19.XXXA - Unspecified fall, initial encounter Condition: Fair Instructions: Oxycodone/Acetaminophen (By mouth), Contusion in Adults (ED) Referrals: NONE *PRIMARY CARE P,. [Primary Care Provider] - As per Instructions [facility] [[facility] - As per Instructions Prescriptions: oxyCODONE/APAP 5/325 [Percocet 5/325 (*)] 1 - 2 tab PO Q4H PRN #7 tab PRN Reason: Pain, Severe
[2018-03-19] MEDS ORDERED: OXYCODONE/APAP 5/325MG PREPACK#4 BTL TAKEHOME ONE (19:22)
[2018-03-19 19:30] VITALS: BP 128/88
== END 2018-03-19 19:30 | disposition home or self-care (01) ==
DX: S80.02XA Contusion of left knee, initial encounter (principal); S70.02XA Contusion of left hip, initial encounter; W10.8XXA Fall (on) (from) other stairs and steps, initial encounter; I10 Essential (primary) hypertension
CPT/HCPCS: J2270

== ENCOUNTER 2018-03-30 17:59 | Emergency (ER) | payer MEDICAID ==
--- NOTE | 2018-03-30 18:31 | EDPHY ---
H & P Stated Complaint: dizzy; multiple falls recently; injury to R ankle Time Seen by Provider: 03/30/18 18:27 HPI/ROS: CHIEF COMPLAINT: Right ankle pain HISTORY OF PRESENT ILLNESS: 33-year-old female complaining of acute right foot and ankle pain. She was walking down the stairs today, felt dizzy, misstepped and rolled her foot. She did not impact her head. No syncope or near syncope. She does note that on March 07 she slipped on the ice and hit her head and ever since has been feeling intermittent dizziness in addition to photophobia, difficulty concentrating, emotional lability. Today, She did not fall down stairs did not impact her head or other body part did not fall from height. She is able to bear partial weight on her right foot and ankle. She denies any head injury today or any head injury since March 07. Her also confirms that she has been experiencing difficulty concentrating, emotional lability, photophobia since slipping on the ice on March 07. She denies: Midline C-spine pain, this peripheral paresthesia, weakness, numbness, denies nausea or vomiting. REVIEW OF SYSTEMS: 10 systems reviewed and negative with the exception of the elements mentioned in the history of present illness PAST MEDICAL & SURGICAL HISTORY: no anticoagulant use SOCIAL HISTORY: PHYSICAL EXAM (Prior to examination, patient consented to physical exam, hands were washed and my usual and customary physical exam procedures followed) 1) GENERAL: Well-developed, well-nourished, alert and oriented. Appears to be in no acute distress. 2) HEAD: Normocephalic, atraumatic 3) HEENT: Pupils equal, round, reactive to light bilaterally. Sclera anicteric. Nasopharynx, oropharynx, clear, no lesions. Moist mucous membranes. Ears bilaterally with normal tympanic membranes. No raccoon eyes. No Hull sign. No rhinorrhea. No otorrhea. No hemotympanum. No fluid or blood in the external auditory canal. 4) NECK: Full range of motion, no meningeal signs. No midline C-spine pain. Full range of motion which does not elicit midline pain or peripheral paresthesia, weakness, numbness. No crepitus. No step-off. 5) LUNGS: Clear auscultation bilaterally, no wheezes, no rhonchi, no retractions. 6) HEART: Regular rate and rhythm, no murmur, no heave, no gallop. 7) ABDOMEN: No guarding, no rebound, no focal tenderness, negative McBurney's, negative Mensah's, negative Rovsing's, negative peritoneal sign, 8) MUSCULOSKELETAL: Right lower extremity: Tender to palpation right lateral malleolus, tender to palpation right 5th metatarsal. Soft tissue swelling and ecchymosis at both locations. DP PT pulses present and brisk. Soft compartments throughout. Proximal tibia and fibula nontender. Knee nontender. Hip nontender. Femur nontender. Otherwise, Moving all extremities, no focal areas of tenderness, no obvious trauma. No peripheral edema or discoloration. 9) BACK: No CVA tenderness, no midline vertebral tenderness, no fluctuance, no step-off, no obvious trauma, no visual or palpable abnormality. 10) SKIN: No rash, no petechiae. 11) Psychiatric: Patient is oriented X 3, there is no agitation. 12) NEURO: Awake, alert, and oriented to person, place and time. Answers questions appropriately. There were no obvious focal neurologic abnormalities. No cerebellar dysfunction. Cranial nerves 2 through to 12 intact. Normal steady gait. Upper and lower extremities bilaterally with strength 5 / 5, reflexes 2+. DIFFERENTIAL DIAGNOSIS: Not necessarily in any particular order, my differential diagnosis includes, but is not limited to, concussion, skull fracture, intraparenchymal contusion, subarachnoid, subdural and epidural hematoma, fracture, sprain, strain, dislocation The patient understands that this diagnosis is provisional and can never be 100% accurate. - Personal History LMP (Females 10-55): 1-7 Days Ago Current Tetanus/Diphtheria Vaccine: Yes Current Tetanus Diphtheria and Acellular Pertussis (TDAP): Yes Tetanus Vaccine Date: < 10 years - Medical/Surgical History Hx Asthma: No Hx Chronic Respiratory Disease: No Hx Diabetes: No Hx Cardiac Disease: No Hx Renal Disease: No Hx Cirrhosis: No Hx Alcoholism: No Hx HIV/AIDS: No Hx Splenectomy or Spleen Trauma: No Other PMH: Bilateral tubal ligation, HTN - Social History Smoking Status: Never smoked Constitutional: Initial Vital Signs Temperature (C) 36.7 C 03/30/18 18:13 Heart Rate 75 03/30/18 18:13 Respiratory Rate 18 03/30/18 18:13 Blood Pressure 112/93 H 03/30/18 18:13 O2 Sat (%) 97 03/30/18 18:13 O2 Delivery Mode Room Air Allergies/Adverse Reactions: codeine Allergy (Verified 03/07/18 10:41) Home Medications: Medication Instructions Recorded Hydrocodone/APAP 5/325 [Rozet 1 - 2 tab PO Q4H PRN #10 tab 03/07/18 5/325 (*)] oxyCODONE/APAP 5/325 [Percocet 1 - 2 tab PO Q4H PRN #7 tab 03/19/18 5/325 (*)] Medical Decision Making - Diagnostics Imaging Results: Imaging Impressions Ankle X-Ray 03/30/18 18:30 Impression: Negative right ankle series. Foot X-Ray 03/30/18 18:30 Impression: Negative right foot radiographs. Head CT 03/30/18 19:33 Impression: 10 mm focus of parenchymal hemorrhage involving the anterior right side of the gaudencio at the level of the cerebellar peduncle. Results called to Austin Terrazas PA-C at 8:15 PM at the time of the interpretation. Images reviewed myself Procedures: Procedure: Splint A [place] boot splint was applied by ER crystal growing technician. After application of the splint I returned and re-examined the patient. The splint was adequately immobilizing the joint and distal to the splint the patient's circulation and sensation were intact. Patient shows no signs of compartment syndrome. Was given orthopedic precautions. Procedure: Crutches indications for crutch use discussed with patient. Patient fitted for crutches by ER staff. Observed ambulating with crutches. I think the patient has the capacity to safely use crutches. Usual and customary crutch walking precautions provided ED Course/Re-evaluation: 7:30 p.m.: Patient has a nonfocal exam. I discussed her negative imaging results of the right foot and ankle. She has been placed in a [place] boot and crutches. Because of her concerns over continued intermittent dizziness post head injury March [address] imaging. She denies acute injury of the head. 8:30 p.m.: Discussed with the patient and with Dr. Jose Angel Quinteros in the ER the parenchymal hemorrhage at the gaudencio. She remains the nonfocal exam and has been observed ambulating in the ER with crutches with stable steady gait. She denies acute head injury there is no evidence of head injury at this time. Only head injury she notes is March 07 when she slipped on ice however has denies headache or focal neurologic deficits but does no continued post concussive like symptoms. I consulted with with Dr. Eliud Meredith Neurosurgery at this time regarding the patient's foci of subacute bleeding. Patient remains with a nonfocal exam. Dr. Meredith recommends outpatient follow-up this week (today is Friday). I discussed my consultation with the patient and her . Patient feels comfortable ambulating with crutches and a Giuliano boot. Both she and feel comfortable following up on outpatient basis. Usual and customary orthopedic and head injury precautions and instructions provided. - Data Points Medications Given: Discontinued Medications Lorazepam (Ativan) 1 mg PO EDNOW ONE Stop: 03/30/18 19:36 Last Admin: 03/30/18 20:41 Dose: Not Given Oxycodone/Acetaminophen (Percocet 5/325) 1 tab PO EDNOW ONE Stop: 03/30/18 19:38 Last Admin: 03/30/18 19:47 Dose: 1 tab Departure - Departure Disposition: Home, Routine, Self-Care Clinical Impression: Subarachnoid bleed Right ankle sprain Qualifiers: Encounter type: initial encounter Involved ligament of ankle: unspecified ligament Qualified Code(s): S93.401A - Sprain of unspecified ligament of right ankle, initial encounter Right foot sprain Qualifiers: Encounter type: initial encounter Qualified Code(s): S93.601A - Unspecified sprain of right foot, initial encounter Condition: Good Instructions: Ankle Sprain (ED), Foot Sprain (ED) Additional Instructions: Return to the ER immediately if you experience discoloration, have worsening pain, numbness, tingling, or any other symptoms that concern you. If you received x-rays in the emergency department today, be advised, that ligamentous , tendon, muscular, and other non-bony injury cannot be fully ruled out. Try to keep your affected extremity elevated above the level of your chest, and keep cold packs on the affected area, for the next 48 hours. Referrals: Earl Madison MD [Medical Doctor] - 5-7 days, call for appt. Codey Shepherd MD [Medical Doctor] - 1-2 days without fail (Dr. Meredith is a neurosurgeon.) Stand Alone Forms: Work Excuse
[2018-03-30] MEDS ORDERED: LORazepam 1 MG TAB PO ONE (19:35)
[2018-03-30] MEDS ORDERED: OXYCODONE/APAP 5/325 TAB PO ONE (19:37)
[2018-03-30 20:53] VITALS: BP 136/99
== END 2018-03-30 20:52 | disposition home or self-care (01) ==
DX: S93.401A Sprain of unspecified ligament of right ankle, initial encounter (principal); S93.601A Unspecified sprain of right foot, initial encounter; S06.6X0D Traumatic subarachnoid hemorrhage without loss of consciousness, subsequent encounter; I10 Essential (primary) hypertension
CPT/HCPCS: L4386

== ENCOUNTER 2018-03-31 20:18 | Inpatient (IN) | payer MEDICAID ==
[2018-03-31] MEDS ORDERED: fentaNYL 100 MCG/2 ML INJ IVP ONE (20:46)
[2018-03-31] MEDS ORDERED: ONDANSETRON 4 MG/2 ML VIAL IVP ONE (20:46)
--- NOTE | 2018-03-31 20:46 | EDPHY ---
H & P Time Seen by Provider: 03/31/18 20:31 HPI/ROS: CHIEF COMPLAINT: Headache HISTORY OF PRESENT ILLNESS: Patient is a 33-year-old female who presents emergency department with worsening headache. Patient was seen in the emergency department yesterday. During that visit she was diagnosed with a 10 mm focus of parenchymal hemorrhage involving the anterior right side of her palms at the level of the cerebellar peduncle. Patient states she had a fall on ice on 03/07/2018 and she struck her head. Patient also had a fall yesterday and injured her right ankle. She denies striking her head yesterday. Patient states that she has been having intermittent headache for the past 3 weeks. Her headache worsened today. Persisted throughout the day. She describes it as diffuse and severe. It is not worse with movement. She denies any visual change. No nausea or vomiting. No focal weakness or numbness. REVIEW OF SYSTEMS: 10 systems were reveiwed and are negative with the exception of the elements mentioned in the history of present illness. Past Medical/Surgical History: Includes parenchymal hemorrhage, hypertension Past surgical history: Tubal ligation Social history: Patient does not smoke Smoking Status: Never smoked Physical Exam: Vitals noted GENERAL: Mild acute distress, alert. HEENT: Eyes normal to inspection, normal pharynx, no signs of dehydration. NECK: Normal, supple. No spinal tenderness RESPIRATORY: Clear to auscultation bilaterally, no rales, rhonchi or wheezing. CVS: Regular rate and rhythm, no rubs, murmurs, or gallops. ABDOMEN: Soft, nontender, nondistended, no organomegaly. BACK: Normal to inspection, no CVA tenderness. SKIN: Normal color, no rash, warm, dry. No pallor. EXTREMITIES: No pedal edema, no calf tenderness, no Homans sign or cords, no joint swelling. NEURO/PSYCH: Higher functions: Alert and Oriented x3. Normal speech and cognition. Normal mood and affect. Cranial nerves: Normal as tested. Cerebellar: Normal as tested. Good finger to nose, good [id number], normal gait. Peripheral exam: Normal motor exam. Normal sensation. Normal reflexes. Constitutional: Initial Vital Signs Temperature (C) 36.8 C 03/31/18 20:19 Heart Rate 85 03/31/18 20:19 Respiratory Rate 17 03/31/18 20:19 Blood Pressure 153/90 H 02/12/19 20:19 O2 Sat (%) 96 03/31/18 20:19 O2 Delivery Mode Nasal Cannula O2 (L/minute) 2 Allergies/Adverse Reactions: codeine Allergy (Verified 03/31/18 20:19) Home Medications: Medication Instructions Recorded Hydrocodone/APAP 5/325 [Fellows 1 - 2 tab PO Q4H PRN #10 tab 03/07/18 5/325 (*)] oxyCODONE/APAP 5/325 [Percocet 1 - 2 tab PO Q4H PRN #7 tab 03/19/18 5/325 (*)] Medical Decision Making - Diagnostics Imaging Results: Imaging Impressions Head CT 03/31/18 20:46 Impression: No significant change in appearance of the gaudencio with stable hemorrhage as described. Olivia Doughertycarolinedeepika was notified of these findings by telephone at 9:22 PM on 2018 ED Course/Re-evaluation: In the emergency department I discussed possible etiologies with the patient. I answered all her questions. IV was placed. Laboratory studies and head CT were ordered. Head CT: Please refer the dictated report. No change from yesterday's CT imaging. I rechecked the patient. She had no new focal neurologic deficit. She continued to complain of headache. Patient was given Dilaudid 0.5 mg IV. The patient will be admitted for further observation due to her headache and CT findings. I discussed case with the hospitalist service. Differential Diagnosis: My differential includes but is not limited to intraparenchymal bleed, subarachnoid hemorrhage, subdural hematoma, migraine - Data Points Laboratory Results: Laboratory Results 03/31/18 20:30 03/31/18 20:30 03/31/18 03/31/18 03/31/18 20:30 20:30 20:30 WBC RBC Hgb Hct MCV MCH MCHC RDW Plt Count MPV Neut % (Auto) Lymph % (Auto) [place] % (Auto) Eos % (Auto) Baso % (Auto) Nucleat RBC Rel Count Absolute Neuts (auto) Absolute Lymphs (auto) Absolute Monos (auto) Absolute Eos (auto) Absolute Basos (auto) Absolute Nucleated RBC Immature Gran % Immature Gran # PT 13.6 SEC SEC (12.0-15.0) INR 1.02 (0.83-1.16) APTT 28.1 SEC SEC (23.0-38.0) Sodium 134 mEq/L L mEq/L (135-145) Potassium 3.8 mEq/L mEq/L (3.5-5.2) Chloride 104 mEq/L mEq/L (97-110) Carbon Dioxide 23 mEq/l mEq/l (22-31) Anion Gap 7 mEq/L mEq/L (6-14) BUN 14 mg/dL mg/dL (7-23) Creatinine 0.7 mg/dL mg/dL (0.6-1.0) Estimated GFR > 60 Glucose 99 mg/dL mg/dL (70-100) Calcium 9.5 mg/dL mg/dL (8.5-10.4) Beta HCG, Qual NEGATIVE 03/31/18 20:30 WBC 9.16 10^3/uL 10^3/uL (3.80-9.50) RBC 5.42 10^6/uL H 10^6/uL (4.18-5.33) Hgb 12.6 g/dL g/dL (12.6-16.3) Hct 40.9 % % (38.0-47.0) MCV 75.5 fL L fL (81.5-99.8) MCH 23.2 pg L pg (27.9-34.1) MCHC 30.8 g/dL L g/dL (32.4-36.7) RDW 15.1 % % (11.5-15.2) Plt Count 353 10^3/uL 10^3/uL (150-400) MPV 10.3 fL fL (8.7-11.7) Neut % (Auto) 60.3 % % (39.3-74.2) Lymph % (Auto) 29.5 % % (15.0-45.0) [place] % (Auto) 7.9 % % (4.5-13.0) Eos % (Auto) 1.6 % % (0.6-7.6) Baso % (Auto) 0.3 % % (0.3-1.7) Nucleat RBC Rel Count 0.0 % % (0.0-0.2) Absolute Neuts (auto) 5.52 10^3/uL 10^3/uL (1.70-6.50) Absolute Lymphs (auto) 2.70 10^3/uL 10^3/uL (1.00-3.00) Absolute Monos (auto) 0.72 10^3/uL 10^3/uL (0.30-0.80) Absolute Eos (auto) 0.15 10^3/uL 10^3/uL (0.03-0.40) Absolute Basos (auto) 0.03 10^3/uL 10^3/uL (0.02-0.10) Absolute Nucleated RBC 0.00 10^3/uL 10^3/uL (0-0.01) Immature Gran % 0.4 % % (0.0-1.1) Immature Gran # 0.04 10^3/uL 10^3/uL (0.00-0.10) PT INR APTT Sodium Potassium Chloride Carbon Dioxide Anion Gap BUN Creatinine Estimated GFR Glucose Calcium Beta HCG, Qual Medications Given: Discontinued Medications Fentanyl (Sublimaze) 100 mcg IVP EDNOW ONE Stop: 03/31/18 20:47 Last Admin: 03/31/18 20:49 Dose: 100 mcg Ondansetron HCl (Zofran) 4 mg IVP EDNOW ONE Stop: 03/31/18 20:47 Last Admin: 03/31/18 20:49 Dose: 4 mg Departure - Departure Disposition: [facility] Clinical Impression: Headache Qualifiers: Headache type: unspecified Headache chronicity pattern: acute headache Intractability: not intractable Qualified Code(s): R51 - Headache Condition: Good Referrals: NONE *PRIMARY CARE P,. [Primary Care Provider] - As per Instructions
[2018-03-31 20:59] LABS: PLATELET COUNT 353 10^3/uL (150-400)
[2018-03-31 21:08] LABS: INR 1.02 (0.83-1.16); PROTIME(PATIENT) 13.6 SEC (12.0-15.0)
[2018-03-31] MEDS ORDERED: HYDROmorphONE/DILAUDID 2 MG/ML INJ IVP ONE (22:16)
[2018-03-31] MEDS ORDERED: ONDANSETRON DISINTEGRATING 4 MG TAB PO PRN (22:22)
[2018-03-31] MEDS ORDERED: ONDANSETRON 4 MG/2 ML VIAL IVP PRN (22:22)
--- NOTE | 2018-03-31 23:07 | PDGENHP ---
History and Physical - Chief Complaint Headache - History of Present Illness 33 yo F w/ recent fall presents with headache. The patient slipped on ice March 07 and struck her head. Since that time she has been experiencing headaches, blurred vision, and photophobia. She has fallen a few more times since, including yesterday. She injured her R ankle and this prompted a visit to the ER. Ankle XR was negative but CT of her head revealed 10 mm focus of parenchymal hemorrhage involving the anterior R side of the gaudencio. Neurosurgery was consulted and recommended outpatient follow up within 1 week. She presents to the ED again today due to worsening headache. She denies any new neurologic symptoms aside from those described above. She tells me her headache feels like someone poured hot water over her head and face. It is similar in nature to prior but worse in severity. Case discussed with ED physician Dr. Aranda; records reviewed and summarized above. History Information - Allergies/Home Medication List Allergies/Adverse Reactions: codeine Allergy (Verified 03/31/18 20:19) I have personally reviewed and updated: family history, medical history - Past Medical History no pertinent PMH - Surgical History Reports: no pertinent surgical hx - Family History Additional family history: Asked, denies - Social History Smoking Status: Never smoked Review of Systems Review of Systems: ROS: 10pt was reviewed & negative except for what was stated in HPI & below Physical Exam Physical Exam: Temp Pulse Resp BP Pulse Ox 36.8 C 64 16 124/73 H 98 03/31/18 20:19 03/31/18 21:50 03/31/18 21:50 03/31/18 21:50 03/31/18 21:50 Constitutional: obese, uncomfortable Eyes: PERRL, EOMI Ears, Nose, Mouth, Throat: moist mucous membranes, no oral mucosal ulcers Cardiovascular: regular rate and rhythym, no murmur, rub, or gallop Respiratory: no respiratory distress, clear to auscultation Gastrointestinal: normoactive bowel sounds, soft, non-tender abdomen Skin: warm, normal color Musculoskeletal: full muscle strength, no muscle tenderness Neurologic: AAOx3, CN II-XII Intact Psychiatric: interacting appropriately, not anxious Lab Data & Imaging Review 03/31/18 20:30 03/31/18 20:30 WBC 9.16 10^3/uL (3.80-9.50) 03/31/18 20: RBC 5.42 10^6/uL (4.18-5.33) H 03/31/18: Hgb 12.6 g/dL (12.6-16.3) 03/31/18 20: Hct 40.9 % (38.0-47.0) 03/31/18 20: MCV 75.5 fL (81.5-99.8) L 03/31/18: MCH 23.2 pg (27.9-34.1) L 03/31/18: MCHC 30.8 g/dL (32.4-36.7) L 03/31/18: RDW 15.1 % (11.5-15.2) 03/31/18: Plt Count 353 10^3/uL (150-400) 03/31/18: MPV 10.3 fL (8.7-11.7) 03/31/18: Neut % (Auto) 60.3 % (39.3-74.2) 03/31/18: Lymph % (Auto) 29.5 % (15.0-45.0) 03/31/18: [place] % (Auto) 7.9 % (4.5-13.0) 03/31/18: Eos % (Auto) 1.6 % (0.6-7.6) 03/31/18: Baso % (Auto) 0.3 % (0.3-1.7) 03/31/18: Nucleat RBC Rel Count 0.0 % (0.0-0.2) 03/31/18: Absolute Neuts (auto) 5.52 10^3/uL (1.70-6.50) 03/31/18: Absolute Lymphs (auto) 2.70 10^3/uL (1.00-3.00) 03/31/18: Absolute Monos (auto) 0.72 10^3/uL (0.30-0.80) 03/31/18: Absolute Eos (auto) 0.15 10^3/uL (0.03-0.40) 02/12/19 20:30 Absolute Basos (auto) 0.03 10^3/uL (0.02-0.10) 03/31/18 20:30 Absolute Nucleated RBC 0.00 10^3/uL (0-0.01) 03/31/18 20:30 Immature Gran % 0.4 % (0.0-1.1) 03/31/18 20:30 Immature Gran # 0.04 10^3/uL (0.00-0.10) 03/31/18 20:30 PT 13.6 SEC (12.0-15.0) 03/31/18 20:30 INR 1.02 (0.83-1.16) 03/31/18 20:30 APTT 28.1 SEC (23.0-38.0) 03/31/18 20:30 Sodium 134 mEq/L (135-145) L 03/31/18 20:30 Potassium 3.8 mEq/L (3.5-5.2) 03/31/18 20:30 Chloride 104 mEq/L (97-110) 03/31/18 20:30 Carbon Dioxide 23 mEq/l (22-31) 03/31/18 20:30 Anion Gap 7 mEq/L (6-14) 03/31/18 20:30 BUN 14 mg/dL (7-23) 03/31/18 20:30 Creatinine 0.7 mg/dL (0.6-1.0) 03/31/18 20:30 Estimated GFR > 60 03/31/18 20:30 Glucose 99 mg/dL (70-100) 03/31/18 20:30 Calcium 9.5 mg/dL (8.5-10.4) 03/31/18 20:30 Beta HCG, Qual NEGATIVE 03/31/18 20:30 Imaging Review: Imaging Impressions Head CT 03/31/18 20:46 Impression: No significant change in appearance of the gaudencio with stable hemorrhage as described. Olivia Aranda was notified of these findings by telephone at 9:22 PM on 2018 Assessment & Plan Assessment: 33 yo F w/ recent fall and parenchymal hemorrhage presents with headache. Plan: 1. Headache, dizziness, blurred vision - Symptoms seem most consistent with post -concussive syndrome noting onset after fall and head trauma on March 07. She does have a 10 mm focus of parenchymal hemorrhage, which may be contributing. CTH (personally reviewed/interpreted) demonstrates stability compared to prior. - Admit for observation - Neuro check q4h - Pain control - Neurosurgery consult in the morning 2. Parenchymal hemorrhage - Presumable related to fall and head trauma that occurred on March 07. - Avoid NSAIDs, blood thinners - Neurosurgery consult in the morning Diet - Regular Code - Full Ppx - Low risk, ambulate TID Dispo - Admit under observation status
[2018-04-01] MEDS: ACETAMINOPHEN 500 MG TAB PO PRN ×3 (00:53→18:10)
[2018-04-01] MEDS ORDERED: NS 1,000 ML IV ONE (01:49)
[2018-04-01 05:26] LABS: PLATELET COUNT 279 10^3/uL (150-400)
--- NOTE | 2018-04-01 09:41 | ASMTCMCOM ---
CM Note CM Note Notes: Pt is a 33 y/o female admitted for a headache after a fall and hitting her head on ice Mar 07, 2018. SPL has been ordered and awaiting recommendations. Needs are TBD at this time. CM to follow. Plan: TBD Date Signed: 04/01/2018 09:40 AM Electronically Signed By:JOSE Manzano
--- NOTE | 2018-04-01 09:42 | HOSPPROG ---
Hospitalist Progress Note Assessment/Plan: 33 yo F w/ recent fall and parenchymal hemorrhage presents with headache. She slipped on ice on March 07 and struck her head. Since then she had headaches , blurred vision, and photophobia. She continues to have some falling. She injured her r ankle, x ray stable. *headaches w dizziness and blurred vision-post concussive syndrome -she has a 10 mm focus of parenchymal hemorrhage which may be contributing -still having headaches since original injury without any improvement -has 5 children at home, question if she hasn't had the time to let her head injury to improve *parenchymal hemorrhage -spoke w neurosurgery and they will see -avoid NSAIDS *gait instability w falling *right ankle injury -x ray stable *obesity w a BMI of 30 *plan: neurosurgery to see, I am concerned w the persistent nature of her headaches, she would benefit from an anti-inflammatory if ok w neurosurgery. Subjective: Rosa is eating and drinking well, c/o photophobia and headache at the back of her head. Objective: Vital Signs Temp Pulse Resp BP Pulse Ox 36.7 C 70 16 113/64 94 04/01/18 07:35 04/01/18 07:35 04/01/18 07:35 04/01/18 07:35 04/01/18 07:35 Laboratory Results 04/01/18 05:08 04/01/18 05:08 03/31/18 04/01/18 04/02/18 05:59 05:59 05:59 Intake Total 1300 Balance 1300 PT 13.6 SEC (12.0-15.0) 03/31/18 20:30 INR 1.02 (0.83-1.16) 03/31/18 20:30 - Physical Exam Constitutional: obese, uncomfortable, No not in pain Eyes: PERRL Ears, Nose, Mouth, Throat: hearing normal Cardiovascular: regular rate and rhythym Respiratory: no respiratory distress Skin: warm Neurologic: AAOx3 Psychiatric: interacting appropriately, flat affect ICD10 Worksheet Patient Problems: Problems Problem Status Onset Headache Acute Chest pain Acute
[2018-04-01] MEDS ORDERED: HYDROCODONE/APAP 5/325 TAB PO PRN (09:49)
[2018-04-01] MEDS ORDERED: HYDROmorphONE/DILAUDID 2 MG TAB PO PRN (10:07)
[2018-04-01] MEDS ORDERED: BISACODYL 10 MG SUPP PR PRN (10:07)
[2018-04-01] MEDS ORDERED: MAGNESIUM HYDROXIDE 30 ML UDCUP PO PRN (10:07)
[2018-04-01] MEDS ORDERED: LACTULOSE 20 GM/30 ML UDCUP PO PRN (10:07)
--- NOTE | 2018-04-01 11:10 | GCON ---
[f rep st] CONSULTATION CHIEF COMPLAINT: 1. Multiple falls. 2. Headache. 3. Gaudencio contusion. HISTORY OF PRESENT ILLNESS: The patient is a 33-year-old female who has had a recent history of some falls over the course of the last month to 2 months. She has had 3 falls with the most significant fall that occurred on 03/07/2018. The patient presented to the ER with the most current complaints o f headache. She did have the slip and fall on 03/07 which she struck her head, and there was some lo ss of consciousness per the patient. Since that time, she has been experiencing some headaches, blur ry vision, and photophobia. She had fallen a few more times. Most recent fall was the day before he r admission on 03/30/2017. In the process of these falls, she did injure her ankle. This prompted a visit to the ER. Ankle x-rays were negative, but a CT scan of the head revealed this 10 mm focus of parenchymal hemorrhage involving the anterior right side of the gaudencio. We were consulted from Director Of Home Economics al Medicine this a.m. The patient was seen both by myself and Dr. Zhong at 10:15 a.m. today. We did review through the [facility]. Currently, she has some blurry vision, headaches. She is currently being treated with Tylenol and p.o. Dilaudid as needed. There is no reported history of any seizure activity. She has not had any history of closed head injuries other than these recent falls. She feels a little more tired. She has headaches and feels a little out of it, exhibiting some postconcussive symptoms. No upper or lower extremity complaints such as numbness, tingling, weakness, or pain. ALLERGIES: Codeine. PAST MEDICAL HISTORY: Negative. PAST SURGICAL HISTORY: None except for a tubal ligation. FAMILY HISTORY: Reviewed and noncontributory. SOCIAL HISTORY: She does not work at this time. Her fiance was present at the bedside. She does no t smoke. She drinks only occasional alcohol, and there is no reported history of any drug use or pre scription drug use. IMMUNIZATIONS: Up to date. TRAVEL: No recent travel. REVIEW OF SYSTEMS: Complete 10-point review of systems was negative, otherwise noted in HPI and belo w. PHYSICAL EXAMINATION: GENERAL: This is an awake, alert, oriented female in no acute distress. CHERIE L SIGNS: Most recent, blood pressure 113/64 with a MAP of 80, pulse rate of 70, 16 respirations, 94% on room air, temperature 36.7. HEENT: Head is normocephalic, atraumatic. Pupils are equal, round, reactive to light. EOMI is intact. Full visual bagley by confrontation. Ears are patent. Nose is patent. NECK: Soft and supple. No midline tenderness. Full range of motion with flexion, extensi on, lateral bending, and rotation. RESPIRATORY/CARDIAC: Deferred. ABDOMEN: Soft, nontender. No p eritoneal signs. AND RECTAL: Deferred. NEURO: Patient is awake, alert, oriented to name, place , location, date, time, and situation. Memory is intact to immediate, past, and current events. Spe ech: No aphasia, dysarthria, dysphonia. Cranial nerves 2-12 grossly intact. Motor: Patient has 5/ 5 strength in all muscle groups of bilateral upper and lower extremities to include deltoids, biceps, triceps, brachioradialis, wrist flexion extensors, duck bill operator intrinsic fingers, iliopsoas, quadriceps, ibrahim mstring, plantar flexion, dorsiflexion, EHL testing. Sensation is grossly intact to light touch thro ughout all dermatome distributions, upper and lower extremities. Negative straight leg raise. Negat niels KALIE test. Reflexes of biceps, triceps, brachioradialis, knee jerk, and ankle jerk 2+/4. Toes are downgoing bilaterally. Meng's negative. Babinski negative. No clonus. Negative Romberg or pronator drift. No palpable cervical, thoracic, or lumbar spine pain. DIAGNOSTIC TESTS: Laboratory tests obtained on 04/01/2018 show a white count of 6.32 with H and H of 10.6 and 34.7 with a platelet count of 279. Coags on 03/31/2018 show a PT of 13.6, INR of 1.02, and PTT of 28.1. Chemistry on 04/01/2018 shows sodium 138, potassium 4.0, chloride 109, CO2 of 24, BUN 11, creatinine 0.7, and glucose of 89. Qualitative beta HCG was negative. IMAGING: CT scan of the head obtained on 03/31/2018 shows no significant change in the appearance of a stable hemorrhage within the gaudencio. Pending MRI of the brain with and without contrast. IMPRESSION: 1. Multiple falls. 2. Stable hemorrhage within gaudencio. Given atypical location, further imaging ordered. PLAN AND DISCUSSION: The patient is a 33-year-old female who was admitted to the Internal Medicine s ervice with recurrent falls. She has some hemorrhage in the gaudencio. This is an atypical location, giv en her history of trauma. We will confirm this with an MRI with and without contrast. One concern i s for a possible CP angle tumor. This was related to her fiance, as well as the patient, and they un derstand and agree with this treatment plan. We will obtain the MRI, review this, and proceed from t here. We would like to double check and make sure and confirm whether this is a hemorrhage or in fac t possibility of a tumor. All questions and concerns were answered. /[id number]/MODL
[2018-04-01] MEDS ORDERED: GADOBUTROL 10 ML VIAL IVP ONE (11:30)
[2018-04-01] MEDS ORDERED: DIAZEPAM 5 MG/ML 1 ML SYR IVP ONE (12:13)
[2018-04-01] MEDS: POLYETHYLENE GLYCOL 3350 17 GM PKT PO SCH (15:16)
[2018-04-01] MEDS: HYDROmorphONE/DILAUDID 2 MG TAB PO PRN ×2 (16:22→20:44)
--- NOTE | 2018-04-01 17:11 | PDMN ---
Medical Necessity Medical necessity: [facility] M185 Headaches, A-1 day: 33 yo w/ recent, freq falls over past 2-3mo presents w/ H/A, dizzy, blurred vision. Initial admit to [facility] for workup. Neurosurg consult today. Pt requiring additional MN for ongoing dx testing and pain management as this is still unknown etiology - post concussive vs. CP angle tumor, vs. hemorrhage. Change to IP status 04/01/18@ 1622 per TIMBER MANAGEMENT ASSISTANT order
[2018-04-01] MEDS: SENNOSIDES/DOCUSATE SODIUM TAB PO SCH (20:44)
[2018-04-01] MEDS ORDERED: HYDROmorphONE/DILAUDID 1 MG/ML INJ IVP PRN (22:14)
[2018-04-02] MEDS: POLYETHYLENE GLYCOL 3350 17 GM PKT PO SCH (07:53)
[2018-04-02] MEDS: SENNOSIDES/DOCUSATE SODIUM TAB PO SCH (07:53)
--- NOTE | 2018-04-02 08:16 | NEUSURGPN ---
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 -Recommend out patient audiogram and follow up with our skull based specialist Dr Dunn -Patient denies any hearing loss, neuro intact other than right sided facial weakness with exam -Ok to dispo from neurosurgery standpoint, we will sign off -Please contact us with any questions/concerns Patient was discussed with Dr Zhong who also saw the patient Subjective: Left sided headache Objective: AxO x4 PERRLA/EOMI CN 2-12 grossly intact other than the deficit of unable to puff right cheek or raise right eyebrow which patient states is chronic BAUTISTA x4 5/5 BUE, BLE Neuro Check Frequency: per routine Urinary Catheter in Place: No - Physician Discussed Patient with : [facility] Physical Exam - Vitals, I&O, Labs I and O 04/01/18 04/02/18 04/03/18 05:59 05:59 05:59 Intake Total 400 Output Total 500 Balance -100 Intake: Oral (ml) 400 Output: Urine (ml) 500 Toilet 500 Other: Intake Quantity Yes Sufficient Number of Voids Toilet 1 Vital Signs Temp Pulse Resp BP Pulse Ox 36.7 C 87 18 101/92 H 93 04/02/18 07:32 04/02/18 07:32 04/02/18 07:32 04/02/18 07:32 04/02/18 07:32 ICD10 Worksheet Patient Problems: Problems Problem Status Onset Headache Acute Chest pain Acute
[2018-04-02] MEDS: HYDROmorphONE/DILAUDID 2 MG TAB PO PRN (09:34)
[2018-04-02] MEDS: ACETAMINOPHEN 500 MG TAB PO PRN (09:35)
[2018-04-02 11:12] VITALS: BP 112/83
--- NOTE | 2018-04-02 12:37 | HOSPPROG ---
Hospitalist Progress Note Assessment/Plan: 33 yo F w/ recent fall and parenchymal hemorrhage presents with headache. She slipped on ice on March 07 and struck her head. Since then she had headaches , blurred vision, and photophobia. She continues to have some falling. She injured her r ankle, x ray stable. 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 Objective: Vital Signs Temp Pulse Resp BP Pulse Ox 36.4 C 68 16 112/83 H 94 04/02/18 11:11 04/02/18 11:11 04/02/18 11:11 04/02/18 11:11 04/02/18 11:11 04/01/18 04/02/18 04/03/18 05:59 05:59 05:59 Intake Total 400 Output Total 500 Balance -100 PT 13.6 SEC (12.0-15.0) 03/31/18 20:30 INR 1.02 (0.83-1.16) 03/31/18 20:30 - Physical Exam Constitutional: appears nourished, obese, uncomfortable Eyes: PERRL Ears, Nose, Mouth, Throat: hearing normal Respiratory: no respiratory distress Skin: warm Musculoskeletal: full muscle strength Neurologic: AAOx3 Psychiatric: interacting appropriately ICD10 Worksheet Patient Problems: Problems Problem Status Onset Headache Acute Chest pain Acute
--- NOTE | 2018-04-02 14:05 | ASMTLACE ---
LACE Length of stay for Answers: 2 days current admission Acuity / Level of Answers: Yes Care: Did the patient have an inpatient admission? Comorbidities - select Answers: Other Notes: HTN; Parenchymal all that apply hemorrhage # of Emergency department Answers: 5-8 visits in the last 6 months Score: 10 Date Signed: 04/02/2018 02:03 PM Electronically Signed By:JOSE Manzano
--- NOTE | 2018-04-02 14:07 | ASMTCMCOM ---
CM Note CM Note Notes: Pts case discussed w/ Gege Phoenix NP. Pt is being d/c'd today. CM made pt an appointment at [facility] [place]. Pt does not have any other d/c needs. CM available for changes. Plan: Independent [address] [phone] Joan MCCALLUM 04/06/18 at 2:25PM Please bring photo ID, insurance card, co pay, list of all meds and d/c paperwork. Date Signed: 04/02/2018 02:07 PM Electronically Signed By:JOSE Manzano
--- NOTE | 2018-04-02 15:12 | GDS ---
[f rep st] DISCHARGE SUMMARY DISCHARGE DIAGNOSES: 1. Headaches with dizziness and blurred vision, postconcussive syndrome. 2. 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 3. Parenchymal hemorrhage. 4. Gait instability with falling. 5. Right ankle injury. 6. Obesity, with a body mass index of 30. CONSULTATION: Tyler Floyd, Physician Credit Reference Clerk, with Neurosurgery. BRIEF HISTORY: The patient is a 33-year-old female who had a fall on March 07 and struck her head. She has had headaches, blurred vision and photophobia. She had a CT scan that shows a 10 mm focus of parenchymal hemorrhage which may be contributing to her symptoms. She was seen and evaluated by Neurosurgery. She was evaluated by Tyler Floyd, Physician Credit Reference Clerk , and Dr. Zhong. Their recommendation was get an MRI for further evaluation. The MRI noted that she had a right CPA mass likely representing a vestibular schwannoma. The recommendation was outpatient audiogram and followup with the skull base specialist, who is Dr. Dunn. They already have an appointment with him. The patient continues to have some headaches. On discharge she has been treated with 1 g of Tylenol t.i.d. with oral Dilaudid for breakthrough pain. At this time unable to give her anti-inflammatories due to the parenchymal hemorrhage. Will have her follow up with Dr. Dunn and discuss when she can start anti-inflammatories. HOSPITAL COURSE: 1. Headaches with dizziness and blurred vision. This is likely a postconcussive syndrome. The nursing staff has given her a handout on how to take care of this in the home setting. 2. Right cerebellopontine angle mass likely representing vestibular schwannoma. I gave her several names of audiologists to follow up with. She needs to get an outpatient audiogram. She also is to follow up with Dr. Dunn; she has an appointment next week. 3. Parenchymal hemorrhage, stable. 4. Gait instability and falling. Unclear the etiology. This could be related to the concussive syndrome as well as taking oral narcotics. Recommend she minimize any use of narcotics. 5. Right ankle injury. X-ray stable. 6. Obesity. She has a BMI of 30. DISCHARGE CONDITION: Stable. Blood pressure is 112/83, heart rate is 68, respiratory rate is 16, O2 sats on room air 94%, temperature is 36.4 Celsius. MEDICATIONS AT DISCHARGE: Please see the EMR. DISCHARGE INSTRUCTIONS: 1. Follow up with Dr. Dunn. Ask him if she can take ibuprofen. 2. I have given her 2 places to get an audiogram. 3. The nurses have given her information on how to treat a concussion. 4. A script was sent to [facility] for the Dilaudid. Recommend that she never drink or drive on this medication. Use a stool softener on this medication. 5. Of note, she also has an appointment with [facility] that has been arranged by Case Management. /[id number]/MODL MTDD
== END 2018-04-02 14:40 | disposition home or self-care (01) | DRG 54 ==
LOC: F3N 23:58 → OBSVTOIN 04-01 16:22
PROVIDERS: ADMIT Student in an Organized Health Care Education/Training Program; ATTEND Student in an Organized Health Care Education/Training Program
DX: F07.81 Postconcussional syndrome (principal); D33.3 Benign neoplasm of cranial nerves; S06.309A Unspecified focal traumatic brain injury with loss of consciousness of unspecified duration, initial encounter; R26.81 Unsteadiness on feet; S99.911A Unspecified injury of right ankle, initial encounter; E66.9 Obesity, unspecified; Z68.30 Body mass index [BMI] 30.0-30.9, adult; Z23 Encounter for immunization
CPT/HCPCS: 92507-GN; 92523-GN; 96374; A9585; G0008; G0378; J1170; J1200; J2405; J3010; J3360; L4386

== ENCOUNTER 2018-04-27 18:59 | Emergency (ER) | payer MEDICAID ==
[2018-04-27 19:06] VITALS: BP 131/85
[2018-04-27] MEDS ORDERED: NS 1,000 ML IV ONE (19:54)
[2018-04-27] MEDS ORDERED: KETOROLAC 30 MG/1 ML SDV IVP ONE (19:54)
[2018-04-27] MEDS ORDERED: METOCLOPRAMIDE 10 MG/2 ML VIAL IVP ONE (19:54)
--- NOTE | 2018-04-27 20:02 | EDPHY ---
H & P Stated Complaint: FAN, blurred vision Time Seen by Provider: 04/27/18 19:22 HPI/ROS: CHIEF COMPLAINT: Headache HISTORY OF PRESENT ILLNESS: This is a 33-year-old female who presents with a headache that has been present for the last 6 days. She describes it as a burning sensation, left retro-orbital, with associated photophobia. She denies nausea or vomiting. She has had some dizziness also. Of note, she was admitted to this hospital on March 31 after falling 3 times. At that time she had headache exactly like the headache she is currently experiencing. Head CT at that time revealed right pontine hemorrhage. An MRI was performed which revealed a right cerebellopontine angle enhancing lesion thought likely to be a vestibular schwannoma. She was also noted to have a cyst in the right gaudencio and some abnormal signal intensity in the anterior right gaudencio. She was seen by Neurosurgery and referred to Dr. Dunn, whom she has seen. She is scheduled to have a repeat MRI at some point in the future and has an appointment with Dr. Dunn later this month. She also has an appointment with a concussion specialist. She denies recent fever. She does not have neck pain. She has no known history of migraine headache. REVIEW OF SYSTEMS: A ten system review of systems was performed and is negative with the exception of the items mentioned in the HPI. Past medical history: 1. Hypertension 2. 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 She does not use tobacco products. Rare alcohol use. No illicits. General Appearance: Alert. Vital signs reviewed. BP 131/85. Eyes: Pupils equal and round, no conjunctival injection, no discharge. Anicteric. ENT, Mouth: Mucous membranes are moist, no oropharyngeal erythema or edema. Neck: No lymphadenopathy, supple. Respiratory: Lungs are clear to auscultation; no wheezes, rales, or rhonchi. Cardiovascular: Regular rate and rhythm; no murmur, rub, or gallop. Gastrointestinal: Abdomen is soft and nontender, no masses or organomegaly, bowel sounds normal. Skin: Warm and dry, no rashes on exposed skin, normal color. Back: Nontender to palpation over the thoracolumbar spine. No CVAT. Extremities: No lower extremity edema, no calf tenderness or swelling. Neurological: Alert and oriented. Moving all four extremities easily and equally. Cranial nerves II through XII are examined and are intact with the exception of longstanding inability to puff out her right cheek (visual acuity not tested). Strength is 5 over 5 bilaterally with testing of all major motor groups. Sensation is intact to light touch over all 4 extremities. Psychiatric: Normal affect. - Personal History Current Tetanus/Diphtheria Vaccine: Yes Current Tetanus Diphtheria and Acellular Pertussis (TDAP): Yes Tetanus Vaccine Date: < 10 years - Medical/Surgical History Hx Asthma: No Hx Chronic Respiratory Disease: No Hx Diabetes: No Hx Cardiac Disease: No Hx Renal Disease: No Hx Cirrhosis: No Hx Alcoholism: No Hx HIV/AIDS: No Hx Splenectomy or Spleen Trauma: No Other PMH: Bilateral tubal ligation, HTN, Pareenchmyal hemorrhage, cyst on brain stem - Social History Smoking Status: Never smoked Constitutional: Initial Vital Signs Temperature (C) 36.6 C 04/27/18 19:03 Heart Rate 69 04/27/18 19:03 Respiratory Rate 16 04/27/18 19:03 Blood Pressure 131/85 H 04/27/18 19:03 O2 Sat (%) 98 04/27/18 19:03 O2 Delivery Mode Room Air Allergies/Adverse Reactions: codeine Allergy (Verified 04/27/18 19:02) Marva Medical Decision Making ED Course/Re-evaluation: Left retro-orbital headache similar to the headache she was experiencing when she was admitted to this hospital in March. There features of this headache that are consistent with a migraine headache and I am choosing to treat her with a "migraine cocktail". It is possible that this headache is related to to her concussion. There is no change in her neurologic exam. I am not pursuing further imaging tonight. I do not suspect intracranial infection. Patient re-evaluated at 8 40 p.m.. She is now completely headache free. I am comfortable with her returning home and she is desirous of doing so. She will follow up with Neurosurgery and the postconcussion physician. Differential Diagnosis: Headache including but not limited to subarachnoid hemorrhage, post concussion syndrome, migraine headache, tension headache and infectious causes such as meningitis, pharyngitis and sinusitis. - Data Points Medications Given: Discontinued Medications Diphenhydramine HCl (Benadryl Injection) 25 mg IVP EDNOW ONE Stop: 04/27/18 19:55 Last Admin: 04/27/18 20:00 Dose: 25 mg Sodium Chloride (Ns) 1,000 mls @ 0 mls/hr IV ONCE ONE; Wide Open PRN Reason: Protocol Stop: 04/27/18 19:55 Last Admin: 04/27/18 20:03 Dose: 1,000 mls Ketorolac Tromethamine (Toradol) 15 mg IVP EDNOW ONE Stop: 04/27/18 19:55 Last Admin: 04/27/18 20:01 Dose: 15 mg Metoclopramide HCl (Reglan Injection) 10 mg IVP EDNOW ONE Stop: 04/27/18 19:55 Last Admin: 04/27/18 20:01 Dose: 10 mg Departure - Departure Disposition: Home, Routine, Self-Care Clinical Impression: Headache Qualifiers: Headache type: unspecified Headache chronicity pattern: acute headache Intractability: not intractable Qualified Code(s): R51 - Headache Condition: Good Instructions: Acute Headache (ED) Referrals: Joan Verma PAC [Primary Care Provider] - As per Instructions Jose Armando Dunn MD [Medical Doctor] - As per Instructions
== END 2018-04-27 21:15 | disposition home or self-care (01) ==
DX: R51 Headache (principal); E86.9 Volume depletion, unspecified
CPT/HCPCS: 96374; J1200; J1885; J2765

== ENCOUNTER → 2018-05-12 | Outpatient (CLI) | payer MEDICAID ==
[~2018-05-12] MED LIST: GADOBUTROL 10 ML VIAL IVP ONE
== END ==
LOC: FIMAGING 15:21
PROVIDERS: ATTEND Neurological Surgery
DX: D33.3 Benign neoplasm of cranial nerves (principal); G93.89 Other specified disorders of brain
CPT/HCPCS: A9585

== ENCOUNTER 2018-06-08 18:29 | Emergency (ER) | payer MEDICAID ==
[2018-06-08] MEDS ORDERED: NS 1,000 ML IV ONE (18:43)
[2018-06-08] MEDS ORDERED: PROMETHAZINE HCL 25 MG/ML INJ IVP ONE (18:43)
[2018-06-08] MEDS ORDERED: KETOROLAC 30 MG/1 ML SDV IVP ONE (18:43)
--- NOTE | 2018-06-08 18:43 | EDPHY ---
H & P Stated Complaint: PAP SMEAR 2 WKS AGO/TODAY PINK VAGINAL DISCHARGE AND PELVIC PAIN Time Seen by Provider: 06/08/18 18:39 HPI/ROS: HPI: This is a 33-year-old female who presents with Chief Complaint: PAP SMEAR 2 WKS AGO/TODAY PINK VAGINAL DISCHARGE AND PELVIC PAIN Location: lower abdomen Quality: Cramping pain Duration: 2-3 hours prior to arrival Signs and Symptoms: no fever, + nausea, no vomiting, no hematemesis, no blood in stool, no abdominal bloating, no diarrhea, no back pain, no urinary symptoms , no vaginal discharge, no indigestion, no chest pain, no shortness of breath Timing: Acute Severity: 06/26 Context: Patient reports that yesterday evening after she urinated, she wiped and noticed, pink tinged fluid on her toilet tissue. Today, she started to developed bilateral left greater than right lower abdominal cramping like pain. She reports that 2 weeks ago she had her yearly physical which included her annual Pap smear. Patient reports that she tested negative for "cervical dysplasia." Patient is a G5, all delivered via vaginal deliveries, last menstrual period May 22. Denies any vaginal bleeding, vaginal discharge, urinary symptoms, back pain, fever, nausea, vomiting, diarrhea. History of bilateral tubal ligation. Last sexual intercourse was with her 4 days ago. She complains of mild nausea. Able to eat breakfast and lunch without any difficulty. Last bowel movement was today and yesterday. Patient reports no bowel movement in 3 days. History of constipation. Patient reports she does not want a repeat pelvic exam as this was performed 2 weeks ago. Modifying Factors: None Comment: ROS: A comprehensive 10 system review of systems is otherwise negative aside from elements mentioned in the history of present illness. 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 Never smoked. Family history noncontributory. CONSTITUTIONAL: Nontoxic-appearing overweight female, at bedside, rubbing lower abdomen, appears to be in discomfort, awake and alert HEENT: Atraumatic and normocephalic, PERRL, EOMI. Nares patent; no rhinorrhea; no nasal mucosal edema. Tympanic membranes clear. Oropharynx clear, no exudate and moist pink mucosa. Airway patent. No lymphadenopathy. No meningismus. Cardiovascular: Normal S1/S2, regular rate, regular rhythm, without murmur rub or gallop. PULMONARY/CHEST: Symmetrical and nontender. Clear to auscultation bilaterally. Good air movement. No accessory muscle usage. ABDOMEN: Soft, nondistended, moderate left lower quadrant tenderness, no right lower quadrant tenderness, mild suprapubic tenderness, no rebound, no guarding, no peritoneal signs, no masses or organomegaly. No CVAT. Hypoactive bowel sounds heard x4 quadrants. EXTREMITIES: 2/2 pulses, strength 5/5, no deformities, no clubbing, no cyanosis or edema. NEUROLOGICAL: no focal neuro deficits. GCS 15. SKIN: Warm and dry, no erythema. no rash. Good capillary refill. 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 Follow up is recommended. No source for pelvic pain is identified. Results called and discussed with ALESSIO Spann, on June 08, 2018 at 1948. ED Course/Re-evaluation: Vital signs reviewed and stable upon arrival. No systemic signs. IV access, laboratory studies, urinalysis, pelvic ultrasound ordered Given 1 L normal saline, IV Toradol 30 mg, IV promethazine 12.5 mg with adequate relief of pain 1929: Urinalysis shows 2+ blood but no RBCs, no WBCs, no LE, no bacteria 1929: Laboratory studies reviewed. No leukocytosis, hemoglobin 12.1 with low MCV-likely iron deficiency. No signs of platelet dysfunction/DIPIKA/elevated LFTs/ electrolyte imbalance/pancreatitis/. 1949: Called by radiologist, Dr. Delgado, who reports pelvic ultrasound when compared to pelvic ultrasound in June 2017; shows endometrial stripe measuring 1.1 today and was 2.9 in June. There may be an endometrial polyp and radiology recommends repeat ultrasound in 12 weeks. 2009: Reassessed patient who reports complete relief of discomfort. Discussed ultrasound results. Offered CT abdomen and pelvis scan for further evaluation and patient politely declined as she believes "I have not pooped in several days." Abdomen is soft and nontender and doubt surgical process or need for further imaging. Discussed pelvic ultrasound follow-up for endometrial polyp. Started on MiraLax and stool softeners. This patient was seen under the supervision of my secondary supervising physician. I evaluated and cared for this patient with attending. Differential Diagnosis: Abdominal pain in a female including but not limited to ovarian cyst, pelvic inflammatory disease, ovarian torsion, urinary tract infection, and appendicitis. - Data Points Laboratory Results: Laboratory Results 06/08/18 18:55 06/08/18 18:55 06/08/18 06/08/18 06/08/18 19:10 18:55 18:55 WBC RBC Hgb Hct MCV MCH MCHC RDW Plt Count MPV Neut % (Auto) Lymph % (Auto) Morton % (Auto) Eos % (Auto) Baso % (Auto) Nucleat RBC Rel Count Absolute Neuts (auto) Absolute Lymphs (auto) Absolute Monos (auto) Absolute Eos (auto) Absolute Basos (auto) Absolute Nucleated RBC Immature Gran % Immature Gran # Sodium 137 mEq/L mEq/L (135-145) Potassium 4.2 mEq/L mEq/L (3.5-5.2) Chloride 105 mEq/L mEq/L (97-110) Carbon Dioxide 23 mEq/l mEq/l (22-31) Anion Gap 9 mEq/L mEq/L (6-14) BUN 14 mg/dL mg/dL (7-23) Creatinine 0.7 mg/dL mg/dL (0.6-1.0) Estimated GFR > 60 Glucose 87 mg/dL mg/dL (70-100) Calcium 9.2 mg/dL mg/dL (8.5-10.4) Total Bilirubin 0.5 mg/dL mg/dL (0.1-1.4) Conjugated Bilirubin 0.3 mg/dL mg/dL (0.0-0.5) Unconjugated Bilirubin 0.2 mg/dL mg/dL (0.0-1.1) AST 24 IU/L IU/L (14-46) ALT 36 IU/L IU/L (9-52) Alkaline Phosphatase 114 IU/L IU/L (38-126) Total Protein 7.5 g/dL g/dL (6.3-8.2) Albumin 4.2 g/dL g/dL (3.5-5.0) Lipase 120 IU/L IU/L (23-300) Beta HCG, Qual NEGATIVE Urine Color YELLOW Urine Appearance CLEAR Urine pH 5.0 (5.0-7.5) Ur Specific Murray 1.017 (1.002-1.030) Urine Protein NEGATIVE (NEGATIVE) Urine Ketones NEGATIVE (NEGATIVE) Urine Blood 2+ H (NEGATIVE) Urine Nitrate NEGATIVE (NEGATIVE) Urine Bilirubin NEGATIVE (NEGATIVE) Urine Urobilinogen NEGATIVE EU EU (0.2-1.0) Ur Leukocyte Esterase NEGATIVE (NEGATIVE) Urine RBC 1-3 /hpf /hpf (0-3) Urine WBC 1-3 /hpf /hpf (0-3) Ur Epithelial Cells TRACE /lpf /lpf (NONE-1+) Urine Mucus TRACE /lpf /lpf (NONE-1+) Urine Glucose NEGATIVE (NEGATIVE) 06/08/18 18:55 WBC 7.78 10^3/uL 10^3/uL (3.80-9.50) RBC 5.06 10^6/uL 10^6/uL (4.18-5.33) Hgb 12.1 g/dL L g/dL (12.6-16.3) Hct 38.7 % % (38.0-47.0) MCV 76.5 fL L fL (81.5-99.8) MCH 23.9 pg L pg (27.9-34.1) MCHC 31.3 g/dL L g/dL (32.4-36.7) RDW 15.3 % H % (11.5-15.2) Plt Count 319 10^3/uL 10^3/uL (150-400) MPV 10.8 fL fL (8.7-11.7) Neut % (Auto) 62.9 % % (39.3-74.2) Lymph % (Auto) 25.8 % % (15.0-45.0) Morton % (Auto) 8.9 % % (4.5-13.0) Eos % (Auto) 1.8 % % (0.6-7.6) Baso % (Auto) 0.3 % % (0.3-1.7) Nucleat RBC Rel Count 0.0 % % (0.0-0.2) Absolute Neuts (auto) 4.90 10^3/uL 10^3/uL (1.70-6.50) Absolute Lymphs (auto) 2.01 10^3/uL 10^3/uL (1.00-3.00) Absolute Monos (auto) 0.69 10^3/uL 10^3/uL (0.30-0.80) Absolute Eos (auto) 0.14 10^3/uL 10^3/uL (0.03-0.40) Absolute Basos (auto) 0.02 10^3/uL 10^3/uL (0.02-0.10) Absolute Nucleated RBC 0.00 10^3/uL 10^3/uL (0-0.01) Immature Gran % 0.3 % % (0.0-1.1) Immature Gran # 0.02 10^3/uL 10^3/uL (0.00-0.10) Sodium Potassium Chloride Carbon Dioxide Anion Gap BUN Creatinine Estimated GFR Glucose Calcium Total Bilirubin Conjugated Bilirubin Unconjugated Bilirubin AST ALT Alkaline Phosphatase Total Protein Albumin Lipase Beta HCG, Qual Urine Color Urine Appearance Urine pH Ur Specific Murray Urine Protein Urine Ketones Urine Blood Urine Nitrate Urine Bilirubin Urine Urobilinogen Ur Leukocyte Esterase Urine RBC Urine WBC Ur Epithelial Cells Urine Mucus Urine Glucose Medications Given: Discontinued Medications Sodium Chloride (Ns) 1,000 mls @ 0 mls/hr IV EDNOW ONE; Wide Open PRN Reason: Protocol Stop: 06/08/18 18:44 Last Admin: 06/08/18 18:59 Dose: 1,000 mls Ketorolac Tromethamine (Toradol) 30 mg IVP EDNOW ONE Stop: 06/08/18 18:44 Last Admin: 06/08/18 18:58 Dose: 30 mg Promethazine HCl (Phenergan) 12.5 mg IVP EDNOW ONE Stop: 06/08/18 18:44 Last Admin: 06/08/18 18:57 Dose: 12.5 mg Departure - Departure Disposition: Home, Routine, Self-Care Clinical Impression: Endometrial polyp, Constipation by delayed colonic transit Condition: Good Instructions: Laxative, Stool Softeners (By mouth), Polyethylene Glycol 3350 ( By mouth), Constipation (ED), High Fiber Diet (ED) Additional Instructions: Consume a minimum of 8-10 glasses of water or electrolyte fluid replacement drinks that include Gatorade, Powerade, Pedialyte. Eat a bland diet for the next 48 hours and then slowly advance as tolerated. Take MiraLax daily mixed with a bottle of Gatorade for the next 3 days and then daily as needed for constipation. Take [id number] stool softeners tonight and tomorrow morning. Follow up with OBGYN in 3 months to document interval change of endometrial polyp. Referrals: [facility],. [Primary Care Provider] - As per Instructions
[2018-06-08 19:12] LABS: PLATELET COUNT 319 10^3/uL (150-400)
[2018-06-08 20:29] VITALS: BP 142/85
== END 2018-06-08 20:29 | disposition home or self-care (01) ==
DX: N84.0 Polyp of corpus uteri (principal); K59.01 Slow transit constipation; I10 Essential (primary) hypertension; E86.9 Volume depletion, unspecified
CPT/HCPCS: 96374; J1885; J2550